=== PATIENT | female | born 1940 | race Caucasian/White ===

== ENCOUNTER 2016-02-10 21:19 | Inpatient (IN) | payer MEDICARE ==
[~2016-02-10] VITALS: Ht 160 cm; Wt 78.5 kg
[2016-02-10] MEDS ORDERED: ASPIRIN 81 MG CHEW TAB ONE (21:46)
[2016-02-10] MEDS ORDERED: NEB-ALBUTEROL 2.5 MG/3 ML INH ONE (22:54)
[2016-02-11] VITALS (7 sets, daily range): BP systolic 115–135; RESP 16–22; TEMP 97.6–98.9; Ht 160 cm; Wt 78.5 kg
[2016-02-11] MEDS ORDERED: GLUCAGON 1 MG VIAL IM PRN (01:30)
[2016-02-11] MEDS ORDERED: DEXTROSE 50% SYRINGE 50 ML IV PRN (01:30)
[2016-02-11] MEDS ORDERED: TRAMADOL 50 MG TAB PO PRN (02:30)
[2016-02-11] MEDS ORDERED: NITROGLYCERIN 50 MG/250 ML IV PRN (02:30)
[2016-02-11] MEDS ORDERED: SALINE FLUSH 10 ML FLUSH PRN (02:30)
[2016-02-11] MEDS ORDERED: DOCUSATE SOD 100 MG CAP PO PRN (02:30)
[2016-02-11] MEDS ORDERED: TEMAZEPAM 7.5 MG CAP PO PRN (02:30)
[2016-02-11] MEDS ORDERED: MORPHINE 2 MG/ML SYR IV PRN (02:30)
[2016-02-11] MEDS ORDERED: ONDANSETRON 4 MG VIAL IV PRN (02:30)
[2016-02-11] MEDS ORDERED: SODIUM CHLORIDE 0.9% FLUSH BAG 500 ML IV PRN (02:30)
[2016-02-11] MEDS ORDERED: NITROGLYCERIN SL 0.4 MG TAB SL PRN (02:30)
[2016-02-11] MEDS: DUONEB INH SCH ×8 (04:26→23:14)
[2016-02-11] MEDS ORDERED: ASPIRIN EC 81 MG TAB PO SCH (08:00)
[2016-02-11] MEDS ORDERED: NITROGLYCERIN SL 0.4 MG TAB SL SCH (09:20)
[2016-02-11] MEDS: ASPIRIN EC 81 MG TAB PO SCH (09:20)
[2016-02-11] MEDS: ACETAMINOPHEN 325 MG TAB PO PRN ×2 (09:23→20:45)
[2016-02-11] MEDS: LORAZEPAM 0.5 MG TAB PO PRN ×2 (09:23→20:44)
[2016-02-11] MEDS: SALINE FLUSH 10 ML FLUSH SCH ×2 (09:24→20:43)
[2016-02-11] MEDS: SERTRALINE 25 MG TAB PO SCH (11:22)
[2016-02-11] MEDS: MONTELUKAST 10 MG TAB PO SCH (11:22)
[2016-02-11] MEDS: Furosemide 20 MG TAB PO SCH (11:23)
[2016-02-11] MEDS: ROFLUMILAST 500 MCG TAB PO SCH (11:23)
[2016-02-11] MEDS: RALOXIFENE HCL 60 MG TAB PO SCH (11:23)
[2016-02-11] MEDS: GABAPENTIN 600 MG TAB PO SCH ×3 (11:23→20:44)
[2016-02-11] MEDS: LEVOTHYROXINE 0.125 MG TAB PO SCH (11:23)
[2016-02-11] MEDS: PANTOPRAZOLE 40 MG TAB PO SCH (11:23)
[2016-02-11] MEDS: LOPERAMIDE 2 MG CAPSULE PO SCH ×2 (11:24→20:46)
[2016-02-11] MEDS: FERROUS SULF 325 MG TAB PO SCH ×2 (11:24→20:46)
[2016-02-11] MEDS: METOPROLOL XL 50 MG TAB PO SCH ×2 (11:25→20:44)
[2016-02-11] MEDS: humuLIN N INSULIN SUBQ SCH ×2 (11:26→20:46)
[2016-02-11] MEDS ORDERED: MISSING DOSE XX ONE (12:25)
[2016-02-11] MEDS: NEB-ALBUTEROL 2.5 MG/3 ML INH SCH ×2 (12:29→17:22)
[2016-02-11] MEDS: CHOLECALCIFEROL 1,000 UNITS TAB PO SCH (15:56)
[2016-02-11] MEDS ORDERED: Furosemide 40 MG/4 ML VIAL IV ONE (19:45)
[2016-02-11] MEDS: LEVOFLOXACIN 750 MG/150 ML 150 ML IV SCH (20:43)
[2016-02-11] MEDS: METHYLPRED SOD SUCC 40 MG VIAL IV SCH (20:43)
[2016-02-11] MEDS: Atorvastatin 20 MG TAB PO SCH (20:44)
[2016-02-12] VITALS (7 sets, daily range): BP systolic 120–152; RESP 18–22; TEMP 97.8–98.5
[2016-02-12] MEDS: NEB-ALBUTEROL 2.5 MG/3 ML INH SCH ×4 (00:30→18:30)
[2016-02-12] MEDS: DUONEB INH SCH ×7 (01:01→22:32)
[2016-02-12] MEDS: PANTOPRAZOLE 40 MG TAB PO SCH (06:38)
[2016-02-12] MEDS: LEVOTHYROXINE 0.125 MG TAB PO SCH (06:38)
[2016-02-12] MEDS: SALINE FLUSH 10 ML FLUSH SCH ×2 (08:38→23:31)
[2016-02-12] MEDS: METHYLPRED SOD SUCC 40 MG VIAL IV SCH ×3 (08:38→17:09)
[2016-02-12] MEDS: humuLIN N INSULIN SUBQ SCH ×2 (08:39→20:57)
[2016-02-12] MEDS: Furosemide 20 MG TAB PO SCH (08:42)
[2016-02-12] MEDS: MONTELUKAST 10 MG TAB PO SCH (08:42)
[2016-02-12] MEDS: CHOLECALCIFEROL 1,000 UNITS TAB PO SCH (08:42)
[2016-02-12] MEDS: LEVOFLOXACIN 750 MG/150 ML 150 ML IV SCH (08:42)
[2016-02-12] MEDS: SERTRALINE 25 MG TAB PO SCH (08:42)
[2016-02-12] MEDS: LOPERAMIDE 2 MG CAPSULE PO SCH ×2 (08:42→20:56)
[2016-02-12] MEDS: ROFLUMILAST 500 MCG TAB PO SCH (08:43)
[2016-02-12] MEDS: METOPROLOL XL 50 MG TAB PO SCH ×2 (08:43→20:56)
[2016-02-12] MEDS: ASPIRIN EC 81 MG TAB PO SCH (08:43)
[2016-02-12] MEDS: FERROUS SULF 325 MG TAB PO SCH ×2 (08:43→20:56)
[2016-02-12] MEDS: GABAPENTIN 600 MG TAB PO SCH ×3 (08:43→20:56)
[2016-02-12] MEDS: RALOXIFENE HCL 60 MG TAB PO SCH (08:43)
[2016-02-12] MEDS: NEB-BROVANA 15 MCG/2 ML INH SCH ×2 (13:54→19:24)
[2016-02-12] MEDS: ACETAMINOPHEN 325 MG TAB PO PRN (20:55)
[2016-02-12] MEDS: LORAZEPAM 0.5 MG TAB PO PRN (20:55)
[2016-02-12] MEDS: Atorvastatin 20 MG TAB PO SCH (20:56)
[2016-02-13] MEDS: METHYLPRED SOD SUCC 40 MG VIAL IV SCH ×3 (00:21→16:34)
[2016-02-13] MEDS: NEB-ALBUTEROL 2.5 MG/3 ML INH SCH ×3 (00:30→12:30)
[2016-02-13] MEDS: DUONEB INH SCH ×6 (02:10→23:00)
[2016-02-13] MEDS: ACETAMINOPHEN 325 MG TAB PO PRN ×2 (02:55→21:39)
[2016-02-13 03:00] VITALS: BP_SYST 150; RESP 18; TEMP 98.4
[2016-02-13] MEDS: LEVOTHYROXINE 0.125 MG TAB PO SCH (06:19)
[2016-02-13] MEDS: PANTOPRAZOLE 40 MG TAB PO SCH (06:20)
[2016-02-13] MEDS: NEB-BROVANA 15 MCG/2 ML INH SCH ×2 (06:42→18:51)
[2016-02-13] MEDS: SALINE FLUSH 10 ML FLUSH SCH ×2 (08:06→20:00)
[2016-02-13] MEDS: LEVOFLOXACIN 750 MG/150 ML 150 ML IV SCH (08:06)
[2016-02-13] MEDS: ROFLUMILAST 500 MCG TAB PO SCH (08:07)
[2016-02-13] MEDS: METOPROLOL XL 50 MG TAB PO SCH ×2 (08:07→21:38)
[2016-02-13] MEDS: SERTRALINE 25 MG TAB PO SCH (08:07)
[2016-02-13] MEDS: CHOLECALCIFEROL 1,000 UNITS TAB PO SCH (08:07)
[2016-02-13] MEDS: RALOXIFENE HCL 60 MG TAB PO SCH (08:08)
[2016-02-13] MEDS: FERROUS SULF 325 MG TAB PO SCH ×2 (08:08→21:38)
[2016-02-13] MEDS: Furosemide 20 MG TAB PO SCH (08:08)
[2016-02-13] MEDS: GABAPENTIN 600 MG TAB PO SCH ×3 (08:08→21:37)
[2016-02-13] MEDS: MONTELUKAST 10 MG TAB PO SCH (08:08)
[2016-02-13] MEDS: ASPIRIN EC 81 MG TAB PO SCH (08:08)
[2016-02-13] MEDS: LOPERAMIDE 2 MG CAPSULE PO SCH ×2 (08:08→21:38)
[2016-02-13 08:16] VITALS: BP_SYST 143; RESP 20; TEMP 97.4
[2016-02-13] MEDS: humuLIN N INSULIN SUBQ SCH ×2 (08:30→21:00)
[2016-02-13 12:02] VITALS: BP_SYST 118; RESP 20; TEMP 98.2
[2016-02-13] MEDS ORDERED: Furosemide 40 MG/4 ML VIAL IV ONE (15:45)
[2016-02-13] MEDS: ISOSORBIDE MONO 30 MG TAB PO SCH (16:34)
[2016-02-13 16:36] VITALS: BP_SYST 149; RESP 20; TEMP 98.6
[2016-02-13] MEDS: ENOXAPARIN 30 MG/0.3 ML SYR SUBQ SCH (16:36)
[2016-02-13 19:00] VITALS: BP_SYST 132; RESP 20; TEMP 97.6
[2016-02-13] MEDS: Atorvastatin 20 MG TAB PO SCH (21:37)
[2016-02-13 23:14] VITALS: BP_SYST 125; RESP 20; TEMP 98.1
[2016-02-14] MEDS: METHYLPRED SOD SUCC 40 MG VIAL IV SCH ×4 (00:09→23:09)
[2016-02-14] MEDS: DUONEB INH SCH ×6 (02:04→23:19)
[2016-02-14 03:49] VITALS: BP_SYST 113; RESP 20; TEMP 98
[2016-02-14] MEDS: NEB-BROVANA 15 MCG/2 ML INH SCH ×2 (06:20→19:20)
[2016-02-14] MEDS: PANTOPRAZOLE 40 MG TAB PO SCH (06:28)
[2016-02-14] MEDS: LEVOTHYROXINE 0.125 MG TAB PO SCH (06:28)
[2016-02-14 08:02] VITALS: BP_SYST 131; RESP 18; TEMP 97.6
[2016-02-14] MEDS: SALINE FLUSH 10 ML FLUSH SCH ×2 (08:51→19:59)
[2016-02-14] MEDS: Furosemide 20 MG TAB PO SCH (08:53)
[2016-02-14] MEDS: MONTELUKAST 10 MG TAB PO SCH (08:53)
[2016-02-14] MEDS: ENOXAPARIN 30 MG/0.3 ML SYR SUBQ SCH (08:53)
[2016-02-14] MEDS: SERTRALINE 25 MG TAB PO SCH (08:53)
[2016-02-14] MEDS: LEVOFLOXACIN 750 MG TAB PO SCH (08:53)
[2016-02-14] MEDS: ROFLUMILAST 500 MCG TAB PO SCH (08:54)
[2016-02-14] MEDS: GABAPENTIN 600 MG TAB PO SCH ×3 (08:54→20:00)
[2016-02-14] MEDS: ISOSORBIDE MONO 30 MG TAB PO SCH (08:54)
[2016-02-14] MEDS: LOPERAMIDE 2 MG CAPSULE PO SCH ×2 (08:55→20:00)
[2016-02-14] MEDS: FERROUS SULF 325 MG TAB PO SCH ×2 (08:55→19:59)
[2016-02-14] MEDS: ASPIRIN EC 81 MG TAB PO SCH (08:55)
[2016-02-14] MEDS: RALOXIFENE HCL 60 MG TAB PO SCH (08:55)
[2016-02-14] MEDS: CHOLECALCIFEROL 1,000 UNITS TAB PO SCH (08:55)
[2016-02-14] MEDS: METOPROLOL XL 50 MG TAB PO SCH ×2 (10:18→20:00)
[2016-02-14] MEDS: humuLIN N INSULIN SUBQ SCH ×2 (10:19→20:11)
[2016-02-14] MEDS: ACETAMINOPHEN 325 MG TAB PO PRN ×2 (11:02→20:22)
[2016-02-14 12:06] VITALS: BP_SYST 128; RESP 20; TEMP 98
[2016-02-14 15:53] VITALS: BP_SYST 102; RESP 20; TEMP 98.4
[2016-02-14] MEDS ORDERED: MISSING DOSE XX ONE (16:25)
[2016-02-14 19:15] VITALS: BP_SYST 103; RESP 20; TEMP 98.5
[2016-02-14] MEDS: Atorvastatin 20 MG TAB PO SCH (20:00)
[2016-02-14 23:18] VITALS: BP_SYST 124; RESP 20; TEMP 98.1
[2016-02-15] MEDS ORDERED: MISSING DOSE XX ONE (03:05)
[2016-02-15] MEDS: DUONEB INH SCH ×6 (03:07→22:36)
[2016-02-15 03:40] VITALS: BP_SYST 149; RESP 20; TEMP 97.8
[2016-02-15] MEDS: PANTOPRAZOLE 40 MG TAB PO SCH (06:03)
[2016-02-15] MEDS: LEVOTHYROXINE 0.125 MG TAB PO SCH (06:03)
[2016-02-15] MEDS: NEB-BROVANA 15 MCG/2 ML INH SCH ×2 (06:04→18:53)
[2016-02-15 07:18] VITALS: BP_SYST 139; RESP 20; TEMP 97.9
[2016-02-15] MEDS: SALINE FLUSH 10 ML FLUSH SCH ×2 (07:49→20:50)
[2016-02-15] MEDS: METHYLPRED SOD SUCC 40 MG VIAL IV SCH ×4 (07:49→23:59)
[2016-02-15] MEDS: humuLIN N INSULIN SUBQ SCH ×2 (08:59→20:42)
[2016-02-15] MEDS: ENOXAPARIN 30 MG/0.3 ML SYR SUBQ SCH (10:23)
[2016-02-15] MEDS: ASPIRIN EC 81 MG TAB PO SCH (10:23)
[2016-02-15] MEDS: ROFLUMILAST 500 MCG TAB PO SCH (10:23)
[2016-02-15] MEDS: FERROUS SULF 325 MG TAB PO SCH ×2 (10:24→20:41)
[2016-02-15] MEDS: LOPERAMIDE 2 MG CAPSULE PO SCH ×2 (10:24→20:41)
[2016-02-15] MEDS: ISOSORBIDE MONO 30 MG TAB PO SCH (10:24)
[2016-02-15] MEDS: RALOXIFENE HCL 60 MG TAB PO SCH (10:24)
[2016-02-15] MEDS: LEVOFLOXACIN 750 MG TAB PO SCH (10:25)
[2016-02-15] MEDS: GABAPENTIN 600 MG TAB PO SCH ×3 (10:25→20:41)
[2016-02-15] MEDS: Furosemide 20 MG TAB PO SCH (10:25)
[2016-02-15] MEDS: MONTELUKAST 10 MG TAB PO SCH (10:25)
[2016-02-15] MEDS: CHOLECALCIFEROL 1,000 UNITS TAB PO SCH (10:26)
[2016-02-15] MEDS: METOPROLOL XL 50 MG TAB PO SCH ×2 (10:26→20:41)
[2016-02-15] MEDS: SERTRALINE 25 MG TAB PO SCH (10:27)
[2016-02-15 11:29] VITALS: BP_SYST 124; RESP 20; TEMP 98.1
[2016-02-15] MEDS: ACETAMINOPHEN 325 MG TAB PO PRN (14:43)
[2016-02-15 15:15] VITALS: BP_SYST 108; RESP 20; TEMP 98.3
[2016-02-15] MEDS: NEB-BUDESONIDE 0.5 MG INH SCH (18:55)
[2016-02-15 19:29] VITALS: BP_SYST 130; RESP 20; TEMP 98.1
[2016-02-15] MEDS: Atorvastatin 20 MG TAB PO SCH (20:41)
[2016-02-15 23:36] VITALS: BP_SYST 139; RESP 20; TEMP 98
[2016-02-16] MEDS: DUONEB INH SCH ×6 (02:31→23:08)
[2016-02-16 02:46] VITALS: BP_SYST 128; RESP 20; TEMP 98.2
[2016-02-16] MEDS: LEVOTHYROXINE 0.125 MG TAB PO SCH (05:52)
[2016-02-16] MEDS: PANTOPRAZOLE 40 MG TAB PO SCH (05:53)
[2016-02-16] MEDS: METHYLPRED SOD SUCC 40 MG VIAL IV SCH ×4 (05:53→23:49)
[2016-02-16] MEDS: NEB-BUDESONIDE 0.5 MG INH SCH ×2 (06:57→19:04)
[2016-02-16] MEDS: NEB-BROVANA 15 MCG/2 ML INH SCH ×2 (06:57→19:04)
[2016-02-16 07:37] VITALS: BP_SYST 189; RESP 18; TEMP 97.9
[2016-02-16] MEDS: ASPIRIN EC 81 MG TAB PO SCH (08:02)
[2016-02-16] MEDS: SALINE FLUSH 10 ML FLUSH SCH ×2 (08:02→19:22)
[2016-02-16] MEDS: LOPERAMIDE 2 MG CAPSULE PO SCH ×2 (08:03→20:54)
[2016-02-16] MEDS: ISOSORBIDE MONO 30 MG TAB PO SCH (08:03)
[2016-02-16] MEDS: MONTELUKAST 10 MG TAB PO SCH (08:03)
[2016-02-16] MEDS: SERTRALINE 25 MG TAB PO SCH (08:03)
[2016-02-16] MEDS: RALOXIFENE HCL 60 MG TAB PO SCH (08:03)
[2016-02-16] MEDS: GABAPENTIN 600 MG TAB PO SCH ×3 (08:03→20:54)
[2016-02-16] MEDS: Furosemide 20 MG TAB PO SCH (08:04)
[2016-02-16] MEDS: ENOXAPARIN 30 MG/0.3 ML SYR SUBQ SCH (08:04)
[2016-02-16] MEDS: METOPROLOL XL 50 MG TAB PO SCH ×2 (08:04→20:54)
[2016-02-16] MEDS: FERROUS SULF 325 MG TAB PO SCH ×2 (08:05→20:54)
[2016-02-16] MEDS: CHOLECALCIFEROL 1,000 UNITS TAB PO SCH (08:05)
[2016-02-16] MEDS: LEVOFLOXACIN 750 MG TAB PO SCH (08:05)
[2016-02-16] MEDS: ROFLUMILAST 500 MCG TAB PO SCH (08:06)
[2016-02-16] MEDS: humuLIN N INSULIN SUBQ SCH ×2 (09:09→21:08)
[2016-02-16 11:02] VITALS: BP_SYST 119; RESP 16; TEMP 98
[2016-02-16] MEDS ORDERED: PHARMACY TO DOSE IV SCH (14:35)
[2016-02-16 15:06] VITALS: BP_SYST 164; RESP 18; TEMP 98.2
[2016-02-16] MEDS: VANCOMYCIN 1,500 MG in SODIUM CHLORIDE 0.9% 250 ML IV SCH (17:26)
[2016-02-16 19:29] VITALS: BP_SYST 142; RESP 18; TEMP 96.6
[2016-02-16] MEDS: Atorvastatin 20 MG TAB PO SCH (20:54)
[2016-02-16 23:16] VITALS: BP_SYST 138; RESP 18; TEMP 96.8
[2016-02-17] MEDS: DUONEB INH SCH ×6 (02:37→23:07)
[2016-02-17 05:05] VITALS: BP_SYST 156; RESP 18; TEMP 97.4
[2016-02-17] MEDS: METHYLPRED SOD SUCC 40 MG VIAL IV SCH ×2 (05:30→11:24)
[2016-02-17] MEDS: PANTOPRAZOLE 40 MG TAB PO SCH (05:31)
[2016-02-17] MEDS: LEVOTHYROXINE 0.125 MG TAB PO SCH (05:31)
[2016-02-17] MEDS ORDERED: SALINE FLUSH 10 ML FLUSH PRN (05:35)
[2016-02-17] MEDS ORDERED: SODIUM CHLORIDE 0.9% FLUSH BAG 500 ML IV SCH (06:00)
[2016-02-17] MEDS: NEB-BUDESONIDE 0.5 MG INH SCH ×2 (06:31→17:08)
[2016-02-17] MEDS: NEB-BROVANA 15 MCG/2 ML INH SCH ×2 (06:31→17:08)
[2016-02-17 07:57] VITALS: BP_SYST 162; RESP 16; TEMP 97.1
[2016-02-17] MEDS: SALINE FLUSH 10 ML FLUSH SCH ×2 (08:00→20:00)
[2016-02-17] MEDS ORDERED: SALINE FLUSH 10 ML FLUSH SCH (08:00)
[2016-02-17] MEDS: ENOXAPARIN 30 MG/0.3 ML SYR SUBQ SCH (09:12)
[2016-02-17] MEDS: humuLIN N INSULIN SUBQ SCH ×2 (09:12→21:30)
[2016-02-17] MEDS: SERTRALINE 25 MG TAB PO SCH (09:13)
[2016-02-17] MEDS: MONTELUKAST 10 MG TAB PO SCH (09:13)
[2016-02-17] MEDS: GABAPENTIN 600 MG TAB PO SCH ×3 (09:13→21:13)
[2016-02-17] MEDS: FERROUS SULF 325 MG TAB PO SCH ×2 (09:13→21:13)
[2016-02-17] MEDS: ISOSORBIDE MONO 30 MG TAB PO SCH (09:13)
[2016-02-17] MEDS: RALOXIFENE HCL 60 MG TAB PO SCH (09:13)
[2016-02-17] MEDS: CHOLECALCIFEROL 1,000 UNITS TAB PO SCH (09:14)
[2016-02-17] MEDS: ASPIRIN EC 81 MG TAB PO SCH (09:14)
[2016-02-17] MEDS: LOPERAMIDE 2 MG CAPSULE PO SCH ×2 (09:14→21:13)
[2016-02-17] MEDS: METOPROLOL XL 50 MG TAB PO SCH ×2 (09:14→21:13)
[2016-02-17] MEDS: Furosemide 20 MG TAB PO SCH (09:15)
[2016-02-17] MEDS: ROFLUMILAST 500 MCG TAB PO SCH (09:16)
[2016-02-17 10:27] VITALS: BP_SYST 142; RESP 18; TEMP 97.1
[2016-02-17 15:16] VITALS: BP_SYST 132; RESP 16; TEMP 97.5
[2016-02-17] MEDS: VANCOMYCIN 1,500 MG in SODIUM CHLORIDE 0.9% 250 ML IV SCH (16:27)
[2016-02-17 19:22] VITALS: BP_SYST 142; RESP 18; TEMP 97.5
[2016-02-17] MEDS: Atorvastatin 20 MG TAB PO SCH (21:13)
[2016-02-17 23:25] VITALS: BP_SYST 98; RESP 18; TEMP 96.6
[2016-02-18 02:41] VITALS: BP_SYST 122; RESP 18; TEMP 96.1
[2016-02-18] MEDS: DUONEB INH SCH ×5 (03:05→18:42)
[2016-02-18] MEDS: PANTOPRAZOLE 40 MG TAB PO SCH (06:02)
[2016-02-18] MEDS: LEVOTHYROXINE 0.125 MG TAB PO SCH (06:02)
[2016-02-18 07:47] VITALS: BP_SYST 150; RESP 20; TEMP 95.6
[2016-02-18] MEDS: NEB-BROVANA 15 MCG/2 ML INH SCH ×2 (08:26→18:42)
[2016-02-18] MEDS: NEB-BUDESONIDE 0.5 MG INH SCH ×2 (08:27→18:42)
[2016-02-18] MEDS: humuLIN N INSULIN SUBQ SCH (09:00)
[2016-02-18] MEDS ORDERED: PREDNISONE 20 MG TAB PO SCH (09:00)
[2016-02-18] MEDS: ROFLUMILAST 500 MCG TAB PO SCH (11:03)
[2016-02-18] MEDS: METOPROLOL XL 50 MG TAB PO SCH (11:03)
[2016-02-18] MEDS: FERROUS SULF 325 MG TAB PO SCH (11:03)
[2016-02-18] MEDS: LOPERAMIDE 2 MG CAPSULE PO SCH (11:03)
[2016-02-18] MEDS: ASPIRIN EC 81 MG TAB PO SCH (11:04)
[2016-02-18] MEDS: CHOLECALCIFEROL 1,000 UNITS TAB PO SCH (11:04)
[2016-02-18] MEDS: Furosemide 20 MG TAB PO SCH (11:04)
[2016-02-18] MEDS: GABAPENTIN 600 MG TAB PO SCH ×2 (11:04→17:46)
[2016-02-18] MEDS: MONTELUKAST 10 MG TAB PO SCH (11:04)
[2016-02-18] MEDS: RALOXIFENE HCL 60 MG TAB PO SCH (11:04)
[2016-02-18] MEDS: ISOSORBIDE MONO 30 MG TAB PO SCH (11:05)
[2016-02-18] MEDS: ENOXAPARIN 30 MG/0.3 ML SYR SUBQ SCH (11:06)
[2016-02-18 11:44] VITALS: BP_SYST 124; RESP 20; TEMP 93.1
[2016-02-18] MEDS: SALINE FLUSH 10 ML FLUSH SCH (12:57)
[2016-02-18 15:44] VITALS: BP_SYST 120; RESP 18; TEMP 98.1
[2016-02-18] MEDS: VANCOMYCIN 1,500 MG in SODIUM CHLORIDE 0.9% 250 ML IV SCH (17:46)
[2016-02-18 18:00] VITALS: BP_SYST 120; RESP 18; TEMP 98.1
== END 2016-02-18 19:34 | DRG 190 ==
LOC: ENRESERVDT → ENRESERVTM → ER 21:19 → EMR 22:53 → PCU 02-11 00:23 → OBSVTOIN 02-11 12:07 → ENPENDDIS 02-11 12:07 → 4NT 02-14 12:03
PROVIDERS: ADMIT Internal Medicine Cardiovascular Disease; ATTEND Internal Medicine Cardiovascular Disease
CPT/HCPCS: 36415; 36600; 71010; 80048; 80053; 80061; 82550; 82553; 82565; 82947; 83735; 83880; 84484; 84520; 85025; 85610; 85730; 87071; 87077; 87186; 87804; 93005; 94640; 94799; 99223; 99232; 99233

== ENCOUNTER 2016-02-18 16:11 | Inpatient (IN) | payer MEDICARE ==
[~2016-02-18] VITALS: Ht 160 cm; Wt 80.5 kg
[2016-02-18] MEDS ORDERED: NITROGLYCERIN SL 0.4 MG TAB SL SCH (16:30)
[2016-02-18] MEDS ORDERED: TRAMADOL 50 MG TAB PO PRN (16:30)
[2016-02-18] MEDS ORDERED: LORAZEPAM 0.5 MG TAB PO PRN (16:30)
[2016-02-18] MEDS: ASPIRIN EC 81 MG TAB PO SCH (16:30)
[2016-02-18] MEDS: DUONEB INH SCH ×2 (16:30→19:00)
[2016-02-18] MEDS ORDERED: PNEUMO VAC 25 MCG/0.5 ML VL IM.VACC ONE (16:35)
[2016-02-18] MEDS ORDERED: PHARMACY TO DOSE XX SCH (16:40)
[2016-02-18] MEDS ORDERED: NEB-ALBUTEROL 2.5 MG/3 ML INH SCH (19:00)
[2016-02-18] MEDS ORDERED: **NOTE TO NURSE**PLEASE ENTER HT AND WT FOR VANCOMYCIN DOSING XX SCH (20:18)
[2016-02-18 20:50] VITALS: BP_SYST 100; RESP 18; TEMP 97.6
[2016-02-18 20:55] VITALS: BMI 31.4
[2016-02-18] MEDS ORDERED: TUBERCULIN PPD 5 UNIT SYR ID.VACC ONE (21:00)
[2016-02-18] MEDS ORDERED: MISSING DOSE XX ONE (21:15)
[2016-02-18] MEDS: humuLIN N INSULIN SUBQ SCH (22:09)
[2016-02-18] MEDS: FERROUS SULF 325 MG TAB PO SCH (22:10)
[2016-02-18] MEDS: Atorvastatin 20 MG TAB PO SCH (22:10)
[2016-02-18] MEDS: LOPERAMIDE 2 MG CAPSULE PO SCH (22:11)
[2016-02-18] MEDS: PANTOPRAZOLE 40 MG TAB PO SCH (22:11)
[2016-02-18] MEDS: METOPROLOL XL 50 MG TAB PO SCH (22:11)
[2016-02-18] MEDS ORDERED: DUONEB INH ONE (22:15)
[2016-02-18 22:50] VITALS: RESP 18
[2016-02-18] MEDS: ACETAMINOPHEN 325 MG TAB PO PRN (23:08)
[2016-02-18] MEDS: GABAPENTIN 600 MG TAB PO SCH (23:09)
[2016-02-19 04:12] VITALS: BP_SYST 130; RESP 18; TEMP 97.1
[2016-02-19] MEDS: NEB-BROVANA 15 MCG/2 ML INH SCH ×2 (06:39→19:47)
[2016-02-19] MEDS: DUONEB INH SCH ×5 (06:39→23:17)
[2016-02-19] MEDS: NEB-BUDESONIDE 0.5 MG INH SCH ×2 (06:39→19:46)
[2016-02-19] MEDS: LEVOTHYROXINE 0.125 MG TAB PO SCH (07:13)
[2016-02-19] MEDS: humuLIN N INSULIN SUBQ SCH ×2 (07:57→20:31)
[2016-02-19] MEDS: METOPROLOL XL 50 MG TAB PO SCH ×2 (08:47→20:29)
[2016-02-19] MEDS: SERTRALINE 25 MG TAB PO SCH (08:47)
[2016-02-19] MEDS: CHOLECALCIFEROL 1,000 UNITS TAB PO SCH (08:47)
[2016-02-19] MEDS: RALOXIFENE HCL 60 MG TAB PO SCH (08:47)
[2016-02-19] MEDS: ISOSORBIDE MONO 30 MG TAB PO SCH (08:48)
[2016-02-19] MEDS: ROFLUMILAST 500 MCG TAB PO SCH (08:49)
[2016-02-19] MEDS: FERROUS SULF 325 MG TAB PO SCH ×2 (08:49→20:30)
[2016-02-19] MEDS: MONTELUKAST 10 MG TAB PO SCH (08:49)
[2016-02-19] MEDS: Furosemide 20 MG TAB PO SCH (08:49)
[2016-02-19] MEDS: LOPERAMIDE 2 MG CAPSULE PO SCH ×2 (08:49→20:30)
[2016-02-19] MEDS: ASPIRIN EC 81 MG TAB PO SCH (08:49)
[2016-02-19] MEDS: GABAPENTIN 600 MG TAB PO SCH ×3 (08:49→20:29)
[2016-02-19 13:30] VITALS: BP_SYST 100; RESP 18; TEMP 97.6
[2016-02-19 15:43] VITALS: Ht 160 cm; Wt 80.5 kg
[2016-02-19 15:44] VITALS: BP_SYST 100; RESP 18; TEMP 96.9
[2016-02-19] MEDS: Atorvastatin 20 MG TAB PO SCH (20:29)
[2016-02-19] MEDS: PANTOPRAZOLE 40 MG TAB PO SCH (20:30)
[2016-02-19] MEDS: VANCOMYCIN 1,500 MG in SODIUM CHLORIDE 0.9% 250 ML IV SCH (21:35)
[2016-02-19] MEDS: ACETAMINOPHEN 325 MG TAB PO PRN (22:43)
[2016-02-20 02:05] VITALS: BP_SYST 108; RESP 20; TEMP 97.5
[2016-02-20] MEDS: DUONEB INH SCH ×5 (05:18→22:56)
[2016-02-20] MEDS: NEB-BUDESONIDE 0.5 MG INH SCH ×2 (05:18→16:58)
[2016-02-20] MEDS: NEB-BROVANA 15 MCG/2 ML INH SCH ×2 (05:18→16:58)
[2016-02-20] MEDS ORDERED: SODIUM CHLORIDE 0.9% FLUSH BAG 500 ML IV PRN (05:50)
[2016-02-20] MEDS: LEVOTHYROXINE 0.125 MG TAB PO SCH (06:38)
[2016-02-20 08:46] VITALS: BP_SYST 138
[2016-02-20] MEDS: ISOSORBIDE MONO 30 MG TAB PO SCH (08:50)
[2016-02-20] MEDS: Furosemide 20 MG TAB PO SCH (08:50)
[2016-02-20] MEDS: ASPIRIN EC 81 MG TAB PO SCH (08:51)
[2016-02-20] MEDS: MONTELUKAST 10 MG TAB PO SCH (08:51)
[2016-02-20] MEDS: LOPERAMIDE 2 MG CAPSULE PO SCH ×2 (08:51→21:25)
[2016-02-20] MEDS: METOPROLOL XL 50 MG TAB PO SCH ×2 (08:51→21:26)
[2016-02-20] MEDS: FERROUS SULF 325 MG TAB PO SCH ×2 (08:51→21:25)
[2016-02-20] MEDS: SERTRALINE 25 MG TAB PO SCH (08:51)
[2016-02-20] MEDS: RALOXIFENE HCL 60 MG TAB PO SCH (08:51)
[2016-02-20] MEDS: GABAPENTIN 600 MG TAB PO SCH ×3 (08:51→21:25)
[2016-02-20] MEDS: ROFLUMILAST 500 MCG TAB PO SCH (08:52)
[2016-02-20] MEDS: CHOLECALCIFEROL 1,000 UNITS TAB PO SCH (08:52)
[2016-02-20] MEDS: humuLIN N INSULIN SUBQ SCH ×2 (09:18→21:29)
[2016-02-20 11:52] VITALS: BP_SYST 126; RESP 20; TEMP 97.3
[2016-02-20] MEDS: VANCOMYCIN 1,500 MG in SODIUM CHLORIDE 0.9% 250 ML IV SCH (17:52)
[2016-02-20] MEDS: NEB-ALBUTEROL 2.5 MG/3 ML INH PRN (19:40)
[2016-02-20] MEDS ORDERED: SKIN TEST: READ AND RECORD XX SCH (21:00)
[2016-02-20] MEDS: PANTOPRAZOLE 40 MG TAB PO SCH (21:25)
[2016-02-20] MEDS: Atorvastatin 20 MG TAB PO SCH (21:25)
[2016-02-20] MEDS: ACETAMINOPHEN 325 MG TAB PO PRN (21:27)
[2016-02-20 21:33] VITALS: BP_SYST 108; RESP 20; TEMP 98.7
[2016-02-21] MEDS: NEB-ALBUTEROL 2.5 MG/3 ML INH PRN ×2 (00:11→21:34)
[2016-02-21 01:21] VITALS: BP_SYST 150; RESP 20; TEMP 98
[2016-02-21] MEDS: DUONEB INH SCH ×6 (02:41→23:08)
[2016-02-21] MEDS: LEVOTHYROXINE 0.125 MG TAB PO SCH (06:34)
[2016-02-21] MEDS: NEB-BUDESONIDE 0.5 MG INH SCH ×2 (07:13→18:25)
[2016-02-21] MEDS: NEB-BROVANA 15 MCG/2 ML INH SCH ×2 (07:13→18:25)
[2016-02-21 07:42] VITALS: BP_SYST 140; RESP 22; TEMP 97
[2016-02-21] MEDS: CHOLECALCIFEROL 1,000 UNITS TAB PO SCH (08:04)
[2016-02-21] MEDS: LOPERAMIDE 2 MG CAPSULE PO SCH ×2 (08:04→21:07)
[2016-02-21] MEDS: humuLIN N INSULIN SUBQ SCH ×2 (08:04→21:00)
[2016-02-21] MEDS: FERROUS SULF 325 MG TAB PO SCH ×2 (08:05→21:06)
[2016-02-21] MEDS: SERTRALINE 25 MG TAB PO SCH (08:05)
[2016-02-21] MEDS: ASPIRIN EC 81 MG TAB PO SCH (08:05)
[2016-02-21] MEDS: RALOXIFENE HCL 60 MG TAB PO SCH (08:05)
[2016-02-21] MEDS: Furosemide 20 MG TAB PO SCH (08:05)
[2016-02-21] MEDS: ROFLUMILAST 500 MCG TAB PO SCH (08:05)
[2016-02-21] MEDS: GABAPENTIN 600 MG TAB PO SCH ×3 (08:05→21:06)
[2016-02-21] MEDS: ISOSORBIDE MONO 30 MG TAB PO SCH (08:05)
[2016-02-21] MEDS: MONTELUKAST 10 MG TAB PO SCH (08:05)
[2016-02-21] MEDS: METOPROLOL XL 50 MG TAB PO SCH ×2 (08:06→21:07)
[2016-02-21] MEDS: ACETAMINOPHEN 325 MG TAB PO PRN ×2 (08:07→21:08)
[2016-02-21 16:12] VITALS: BP_SYST 128; RESP 22; TEMP 97.2
[2016-02-21] MEDS: VANCOMYCIN 1,500 MG in SODIUM CHLORIDE 0.9% 250 ML IV SCH (17:15)
[2016-02-21] MEDS: PANTOPRAZOLE 40 MG TAB PO SCH (21:06)
[2016-02-21] MEDS: Atorvastatin 20 MG TAB PO SCH (21:07)
[2016-02-22] MEDS: DUONEB INH SCH ×2 (02:10→07:00)
[2016-02-22 03:26] VITALS: BP_SYST 120; RESP 22; TEMP 98.6
[2016-02-22] MEDS: ACETAMINOPHEN 325 MG TAB PO PRN (03:47)
[2016-02-22] MEDS: NEB-ALBUTEROL 2.5 MG/3 ML INH PRN (03:53)
[2016-02-22] MEDS ORDERED: Furosemide 40 MG/4 ML VIAL ONE (05:59)
[2016-02-22 06:11] VITALS: RESP 26
[2016-02-22] MEDS ORDERED: Furosemide 40 MG/4 ML VIAL IV ONE (06:35)
[2016-02-22] MEDS: NEB-BUDESONIDE 0.5 MG INH SCH (07:00)
[2016-02-22] MEDS: NEB-BROVANA 15 MCG/2 ML INH SCH (07:00)
[2016-02-22] MEDS ORDERED: ONDANSETRON 4 MG VIAL IV PUSH PRN ×2 (07:15→08:25)
[2016-02-22] MEDS ORDERED: METHYLPRED SOD SUCC 125 MG/2 ML VIAL IV SCH (08:00)
[2016-02-25] MEDS ORDERED: TUBERCULIN PPD 5 UNIT SYR ID.VACC ONE (21:00)
== END 2016-02-22 09:04 | disposition short-term general hospital (02) | DRG 556 ==
LOC: ENPENDDIS 19:36 → OBSVTOIN 19:36 → NF 19:36
PROVIDERS: ADMIT Internal Medicine Cardiovascular Disease; ATTEND Internal Medicine Cardiovascular Disease
CPT/HCPCS: 36415; 36600; 71010; 71020; 80048; 80202; 82565; 82803; 82947; 84520; 86580; 94640; 94660; 94799; 99223

== ENCOUNTER 2016-02-22 06:42 | Inpatient (IN) | payer MEDICARE ==
[~2016-02-22] VITALS: Ht 160 cm; Wt 81.9 kg
[2016-02-22] MEDS ORDERED: DUONEB INH SCH (06:55)
[2016-02-22] MEDS ORDERED: DEXTROSE 50% SYRINGE 50 ML IV PRN (06:55)
[2016-02-22] MEDS ORDERED: GLUCAGON 1 MG VIAL IM PRN (06:55)
[2016-02-22] MEDS ORDERED: PHARMACY TO DOSE VANCOMYCIN IV SCH (06:55)
[2016-02-22] MEDS: NEB-BROVANA 15 MCG/2 ML INH SCH ×2 (07:00→18:55)
[2016-02-22] MEDS: NEB-BUDESONIDE 0.5 MG INH SCH ×2 (07:00→18:55)
[2016-02-22] MEDS ORDERED: ADD HEIGHT XX SCH (08:00)
[2016-02-22] MEDS ORDERED: [UNRECOGNIZED DRUG - OTHER] XX SCH (08:00)
[2016-02-22 08:52] VITALS: BP_SYST 110; RESP 24; TEMP 99.7
[2016-02-22 08:53] VITALS: Ht 160 cm; Wt 81.9 kg
[2016-02-22] MEDS ORDERED: LINEZOLID 600 MG TAB PO SCH (09:00)
[2016-02-22] MEDS ORDERED: Furosemide 40 MG/4 ML VIAL IV ONE (09:10)
[2016-02-22] MEDS: DUONEB INH SCH ×4 (10:09→22:52)
[2016-02-22 10:15] VITALS: RESP 24
[2016-02-22] MEDS ORDERED: PHARMACY TO DOSE CEFEPIME IV SCH (10:40)
[2016-02-22] MEDS ORDERED: MISSING DOSE XX ONE ×2 (10:45→15:20)
[2016-02-22 11:13] VITALS: BP_SYST 120; RESP 24; TEMP 99.9
[2016-02-22] MEDS: PANTOPRAZOLE 40 MG TAB PO SCH (11:40)
[2016-02-22] MEDS: ROFLUMILAST 500 MCG TAB PO SCH (11:40)
[2016-02-22] MEDS: METHYLPRED SOD SUCC 125 MG/2 ML VIAL IV SCH ×2 (11:41→20:48)
[2016-02-22] MEDS: Furosemide 20 MG/2 ML VIAL IV SCH ×2 (11:41→17:34)
[2016-02-22] MEDS: ENOXAPARIN 30 MG/0.3 ML SYR SUBQ SCH (11:42)
[2016-02-22] MEDS: CEFEPIME 2000 MG/100 ML D5W 100 ML IV SCH ×2 (13:07→23:40)
[2016-02-22] MEDS ORDERED: DOCUSATE SOD 100 MG CAP PO PRN (14:30)
[2016-02-22 15:08] VITALS: BP_SYST 116; RESP 20; TEMP 98.4
[2016-02-22] MEDS: ACETAMINOPHEN 325 MG TAB PO PRN (15:42)
[2016-02-22] MEDS: GABAPENTIN 600 MG TAB PO SCH ×2 (15:42→20:48)
[2016-02-22] MEDS: VANCOMYCIN 1,500 MG in SODIUM CHLORIDE 0.9% 250 ML IV SCH (17:55)
[2016-02-22 19:29] VITALS: BP_SYST 130; RESP 19; TEMP 98.1
[2016-02-22 23:12] VITALS: BP_SYST 138; RESP 19; TEMP 98.4
[2016-02-23] MEDS: DUONEB INH SCH ×6 (02:08→23:14)
[2016-02-23 03:00] VITALS: BP_SYST 122; RESP 18; TEMP 97.8
[2016-02-23] MEDS: NEB-BUDESONIDE 0.5 MG INH SCH ×2 (06:04→17:00)
[2016-02-23] MEDS: NEB-BROVANA 15 MCG/2 ML INH SCH ×2 (06:04→17:00)
[2016-02-23] MEDS: PANTOPRAZOLE 40 MG TAB PO SCH (06:21)
[2016-02-23 07:01] VITALS: BP_SYST 134; RESP 18; TEMP 98.1
[2016-02-23] MEDS: ENOXAPARIN 30 MG/0.3 ML SYR SUBQ SCH (07:46)
[2016-02-23] MEDS: GABAPENTIN 600 MG TAB PO SCH ×3 (07:47→20:52)
[2016-02-23] MEDS: METHYLPRED SOD SUCC 125 MG/2 ML VIAL IV SCH (07:47)
[2016-02-23] MEDS: Furosemide 20 MG/2 ML VIAL IV SCH (07:47)
[2016-02-23] MEDS: ROFLUMILAST 500 MCG TAB PO SCH (07:47)
[2016-02-23] MEDS: PREDNISONE 20 MG TAB PO SCH (08:02)
[2016-02-23] MEDS: LORAZEPAM 0.5 MG TAB PO PRN ×2 (09:12→20:52)
[2016-02-23] MEDS ORDERED: ASPIRIN 81 MG CHEW TAB PO STA (09:27)
[2016-02-23] MEDS ORDERED: TEMAZEPAM 7.5 MG CAP PO PRN (09:30)
[2016-02-23] MEDS ORDERED: ONDANSETRON 4 MG VIAL IV PRN (09:30)
[2016-02-23] MEDS ORDERED: TRAMADOL 50 MG TAB PO PRN (09:30)
[2016-02-23] MEDS ORDERED: MORPHINE 2 MG/ML SYR IV PRN (09:30)
[2016-02-23] MEDS ORDERED: LORAZEPAM 0.5 MG TAB PO PRN (09:30)
[2016-02-23] MEDS ORDERED: DOCUSATE SOD 100 MG CAP PO PRN (09:30)
[2016-02-23] MEDS ORDERED: SALINE FLUSH 10 ML FLUSH PRN (09:30)
[2016-02-23] MEDS ORDERED: ALU/MAG/SIM 30 ML UDC PO PRN (09:30)
[2016-02-23] MEDS ORDERED: TEMAZEPAM 15 MG CAP PO PRN (09:30)
[2016-02-23] MEDS: NITROGLYCERIN SL 0.4 MG TAB SL PRN ×2 (09:38→11:59)
[2016-02-23 10:40] VITALS: BP_SYST 120; RESP 18; TEMP 98
[2016-02-23] MEDS: CEFEPIME 2000 MG/100 ML D5W 100 ML IV SCH ×2 (11:19→23:52)
[2016-02-23 15:10] VITALS: BP_SYST 124; RESP 20; TEMP 98.4
[2016-02-23] MEDS: Furosemide 20 MG TAB PO SCH (17:18)
[2016-02-23] MEDS: VANCOMYCIN 1,500 MG in SODIUM CHLORIDE 0.9% 250 ML IV SCH (17:19)
[2016-02-23 19:44] VITALS: BP_SYST 122; RESP 20; TEMP 97.8
[2016-02-23] MEDS: SALINE FLUSH 10 ML FLUSH SCH (20:52)
[2016-02-23] MEDS: ACETAMINOPHEN 325 MG TAB PO PRN (20:56)
[2016-02-24] VITALS (8 sets, daily range): BP systolic 120–174; RESP 18–22; TEMP 97.6–98.1
[2016-02-24] MEDS: DUONEB INH SCH ×6 (02:44→22:41)
[2016-02-24] MEDS: SODIUM CHLORIDE 0.9% FLUSH BAG 500 ML IV SCH (05:29)
[2016-02-24] MEDS: PANTOPRAZOLE 40 MG TAB PO SCH (06:08)
[2016-02-24] MEDS: NEB-BUDESONIDE 0.5 MG INH SCH ×2 (06:38→18:35)
[2016-02-24] MEDS: NEB-BROVANA 15 MCG/2 ML INH SCH ×2 (06:38→18:35)
[2016-02-24] MEDS: GABAPENTIN 600 MG TAB PO SCH ×3 (09:06→21:23)
[2016-02-24] MEDS: ROFLUMILAST 500 MCG TAB PO SCH (09:06)
[2016-02-24] MEDS: ASPIRIN 81 MG CHEW TAB PO SCH (09:06)
[2016-02-24] MEDS: PREDNISONE 20 MG TAB PO SCH (09:06)
[2016-02-24] MEDS: Furosemide 20 MG TAB PO SCH ×2 (09:06→16:01)
[2016-02-24] MEDS: ENOXAPARIN 30 MG/0.3 ML SYR SUBQ SCH (09:07)
[2016-02-24] MEDS: SALINE FLUSH 10 ML FLUSH SCH ×2 (09:07→20:00)
[2016-02-24] MEDS: LORAZEPAM 0.5 MG TAB PO PRN (10:45)
[2016-02-24] MEDS: CEFEPIME 2000 MG/100 ML D5W 100 ML IV SCH (13:27)
[2016-02-24] MEDS: VANCOMYCIN 1,500 MG in SODIUM CHLORIDE 0.9% 250 ML IV SCH (18:39)
[2016-02-24] MEDS ORDERED: VANCOMYCIN 500 MG in SODIUM CHLORIDE 0.9% 100 ML IV ONE (19:25)
[2016-02-24] MEDS: LINEZOLID 600 MG TAB PO SCH (21:35)
[2016-02-24] MEDS: ACETAMINOPHEN 325 MG TAB PO PRN (22:00)
[2016-02-25] MEDS: SODIUM CHLORIDE 0.9% FLUSH BAG 500 ML IV SCH (01:27)
[2016-02-25] MEDS: DUONEB INH SCH ×6 (02:20→23:04)
[2016-02-25 04:26] VITALS: BP_SYST 150; RESP 18; TEMP 97.8
[2016-02-25] MEDS: PANTOPRAZOLE 40 MG TAB PO SCH (06:14)
[2016-02-25] MEDS: NEB-BROVANA 15 MCG/2 ML INH SCH ×2 (06:39→18:52)
[2016-02-25] MEDS: NEB-BUDESONIDE 0.5 MG INH SCH ×2 (06:39→20:20)
[2016-02-25] MEDS: ASPIRIN 81 MG CHEW TAB PO SCH (07:42)
[2016-02-25] MEDS: ROFLUMILAST 500 MCG TAB PO SCH (07:42)
[2016-02-25] MEDS: Furosemide 20 MG TAB PO SCH ×2 (07:42→16:59)
[2016-02-25] MEDS: LINEZOLID 600 MG TAB PO SCH ×2 (07:42→21:28)
[2016-02-25] MEDS: GABAPENTIN 600 MG TAB PO SCH ×3 (07:42→21:28)
[2016-02-25] MEDS: SALINE FLUSH 10 ML FLUSH SCH ×2 (07:43→20:00)
[2016-02-25] MEDS: PREDNISONE 20 MG TAB PO SCH (07:43)
[2016-02-25] MEDS: ACETAMINOPHEN 325 MG TAB PO PRN ×2 (07:45→21:41)
[2016-02-25] MEDS: ENOXAPARIN 30 MG/0.3 ML SYR SUBQ SCH (07:46)
[2016-02-25 07:58] VITALS: BP_SYST 140; RESP 18; TEMP 97.6
[2016-02-25] MEDS: DUONEB INH PRN ×2 (09:03→17:50)
[2016-02-25] MEDS: LORAZEPAM 0.5 MG TAB PO PRN (09:25)
[2016-02-25] MEDS ORDERED: DUONEB INH SCH (11:00)
[2016-02-25] MEDS: ISOSORBIDE MONO 30 MG TAB PO SCH (11:54)
[2016-02-25] MEDS: LEVOTHYROXINE 0.125 MG TAB PO SCH (11:55)
[2016-02-25] MEDS: LOPERAMIDE 2 MG CAPSULE PO SCH ×2 (11:55→21:28)
[2016-02-25] MEDS: ASPIRIN EC 81 MG TAB PO SCH (11:55)
[2016-02-25] MEDS ORDERED: VANCOMYCIN 1,750 MG in SODIUM CHLORIDE 0.9% 500 ML IV SCH (12:00)
[2016-02-25 12:06] VITALS: BP_SYST 132; RESP 20; TEMP 97.6
[2016-02-25 15:43] VITALS: BP_SYST 132; RESP 18; TEMP 98
[2016-02-25 21:06] VITALS: BP_SYST 136; RESP 22; TEMP 97.8
[2016-02-25] MEDS: Atorvastatin 20 MG TAB PO SCH (21:28)
[2016-02-26 00:10] VITALS: BP_SYST 140; RESP 18; TEMP 98
[2016-02-26] MEDS: DUONEB INH SCH ×6 (03:03→23:50)
[2016-02-26 03:51] VITALS: BP_SYST 132; RESP 20; TEMP 97.6
[2016-02-26] MEDS: LEVOTHYROXINE 0.125 MG TAB PO SCH (06:35)
[2016-02-26] MEDS: PANTOPRAZOLE 40 MG TAB PO SCH (06:35)
[2016-02-26] MEDS: SODIUM CHLORIDE 0.9% FLUSH BAG 500 ML IV SCH (06:36)
[2016-02-26] MEDS: NEB-BROVANA 15 MCG/2 ML INH SCH ×2 (07:55→19:36)
[2016-02-26] MEDS: NEB-BUDESONIDE 0.5 MG INH SCH ×2 (07:55→19:36)
[2016-02-26] MEDS: SALINE FLUSH 10 ML FLUSH SCH ×2 (08:00→21:15)
[2016-02-26] MEDS: ASPIRIN 81 MG CHEW TAB PO SCH (08:00)
[2016-02-26 08:53] VITALS: BP_SYST 138; RESP 20; TEMP 97.8
[2016-02-26] MEDS: ISOSORBIDE MONO 30 MG TAB PO SCH (08:56)
[2016-02-26] MEDS: GABAPENTIN 600 MG TAB PO SCH ×3 (08:56→21:17)
[2016-02-26] MEDS: LINEZOLID 600 MG TAB PO SCH ×2 (08:56→21:18)
[2016-02-26] MEDS: Furosemide 20 MG TAB PO SCH ×2 (08:57→18:15)
[2016-02-26] MEDS: ROFLUMILAST 500 MCG TAB PO SCH (08:57)
[2016-02-26] MEDS: ASPIRIN EC 81 MG TAB PO SCH (08:57)
[2016-02-26] MEDS: LOPERAMIDE 2 MG CAPSULE PO SCH ×3 (08:57→21:18)
[2016-02-26] MEDS: PREDNISONE 20 MG TAB PO SCH (08:58)
[2016-02-26] MEDS: ENOXAPARIN 30 MG/0.3 ML SYR SUBQ SCH (09:00)
[2016-02-26] MEDS: LORAZEPAM 0.5 MG TAB PO PRN (09:26)
[2016-02-26 10:55] VITALS: BP_SYST 120; RESP 22; TEMP 97.3
[2016-02-26] MEDS ORDERED: KCL CR 20 MEQ TAB PO ONE (12:10)
[2016-02-26] MEDS: NEB-ALBUTEROL 2.5 MG/3 ML INH PRN ×3 (12:21→21:51)
[2016-02-26 15:17] VITALS: BP_SYST 140; RESP 20; TEMP 97.4
[2016-02-26] MEDS: KCL CR 20 MEQ TAB PO SCH (18:15)
[2016-02-26 20:34] VITALS: BP_SYST 140; RESP 18; TEMP 97.7
[2016-02-26] MEDS: Atorvastatin 20 MG TAB PO SCH (21:18)
[2016-02-26] MEDS ORDERED: PHARMACY TO DOSE XX SCH (22:25)
[2016-02-26] MEDS: ACETAMINOPHEN 325 MG TAB PO PRN (22:28)
[2016-02-26] MEDS: METRONIDAZOLE 500 MG TAB PO SCH (23:03)
[2016-02-27 00:20] VITALS: BP_SYST 132; RESP 20; TEMP 97.8
[2016-02-27] MEDS: DUONEB INH SCH ×6 (03:21→22:22)
[2016-02-27 04:16] VITALS: BP_SYST 140; RESP 20; TEMP 97.7
[2016-02-27] MEDS: PANTOPRAZOLE 40 MG TAB PO SCH (06:45)
[2016-02-27] MEDS: LEVOTHYROXINE 0.125 MG TAB PO SCH (06:45)
[2016-02-27] MEDS: SODIUM CHLORIDE 0.9% FLUSH BAG 500 ML IV SCH (06:46)
[2016-02-27] MEDS: NEB-BUDESONIDE 0.5 MG INH SCH ×2 (07:24→19:00)
[2016-02-27] MEDS: NEB-BROVANA 15 MCG/2 ML INH SCH ×2 (07:24→19:00)
[2016-02-27 07:42] VITALS: BP_SYST 140; RESP 20; TEMP 96.2
[2016-02-27] MEDS: NEB-ALBUTEROL 2.5 MG/3 ML INH PRN ×2 (09:49→13:54)
[2016-02-27] MEDS: GABAPENTIN 600 MG TAB PO SCH ×3 (10:22→21:38)
[2016-02-27] MEDS: LINEZOLID 600 MG TAB PO SCH ×2 (10:22→21:38)
[2016-02-27] MEDS: SALINE FLUSH 10 ML FLUSH SCH ×2 (10:22→21:38)
[2016-02-27] MEDS: PREDNISONE 20 MG TAB PO SCH (10:22)
[2016-02-27] MEDS: KCL CR 20 MEQ TAB PO SCH (10:22)
[2016-02-27] MEDS: ASPIRIN EC 81 MG TAB PO SCH (10:22)
[2016-02-27] MEDS: Furosemide 20 MG TAB PO SCH ×2 (10:22→17:47)
[2016-02-27] MEDS: ROFLUMILAST 500 MCG TAB PO SCH (10:22)
[2016-02-27] MEDS: ISOSORBIDE MONO 30 MG TAB PO SCH (10:22)
[2016-02-27] MEDS: METRONIDAZOLE 500 MG TAB PO SCH ×3 (10:22→21:38)
[2016-02-27] MEDS: ENOXAPARIN 30 MG/0.3 ML SYR SUBQ SCH (10:23)
[2016-02-27 11:03] VITALS: BP_SYST 134; RESP 20; TEMP 97.6
[2016-02-27] MEDS: LORAZEPAM 0.5 MG TAB PO PRN (11:41)
[2016-02-27 16:25] VITALS: BP_SYST 130; RESP 20; TEMP 97.2
[2016-02-27 19:44] VITALS: BP_SYST 144; RESP 16; TEMP 96.3
[2016-02-27] MEDS: *HOME MEDS IN MED CART XX SCH (20:00)
[2016-02-27] MEDS: Atorvastatin 20 MG TAB PO SCH (21:38)
[2016-02-27] MEDS: GUAIFENESIN ER 600 MG TABCR PO SCH (21:38)
[2016-02-27] MEDS: ACETAMINOPHEN 325 MG TAB PO PRN (21:57)
[2016-02-28 00:24] VITALS: BP_SYST 160; TEMP 96.8
[2016-02-28] MEDS: DUONEB INH SCH ×6 (02:37→22:24)
[2016-02-28 03:50] VITALS: BP_SYST 136; RESP 18; TEMP 97.1
[2016-02-28] MEDS: SODIUM CHLORIDE 0.9% FLUSH BAG 500 ML IV SCH (06:00)
[2016-02-28] MEDS: NON-FORMULARY MEDICATION PO SCH (06:13)
[2016-02-28] MEDS: LEVOTHYROXINE 0.125 MG TAB PO SCH (06:13)
[2016-02-28 07:18] VITALS: BP_SYST 132; RESP 20; TEMP 97.1
[2016-02-28] MEDS: NEB-BUDESONIDE 0.5 MG INH SCH ×2 (07:22→19:29)
[2016-02-28] MEDS: NEB-BROVANA 15 MCG/2 ML INH SCH ×2 (07:22→19:29)
[2016-02-28] MEDS: SALINE FLUSH 10 ML FLUSH SCH ×2 (08:00→20:00)
[2016-02-28] MEDS: *HOME MEDS IN MED CART XX SCH ×2 (08:00→20:00)
[2016-02-28] MEDS ORDERED: POTASSIUM CHLORIDE PREMIX 50 ML IV SCH (09:35)
[2016-02-28] MEDS: NEB-ALBUTEROL 2.5 MG/3 ML INH PRN ×2 (09:39→17:12)
[2016-02-28] MEDS: LINEZOLID 600 MG TAB PO SCH ×2 (09:55→21:40)
[2016-02-28] MEDS: METRONIDAZOLE 500 MG TAB PO SCH ×3 (09:55→21:40)
[2016-02-28] MEDS: Furosemide 20 MG TAB PO SCH ×2 (09:55→16:50)
[2016-02-28] MEDS: PREDNISONE 20 MG TAB PO SCH (09:55)
[2016-02-28] MEDS: GABAPENTIN 600 MG TAB PO SCH ×3 (09:56→21:40)
[2016-02-28] MEDS: KCL CR 20 MEQ TAB PO SCH (09:56)
[2016-02-28] MEDS: ISOSORBIDE MONO 30 MG TAB PO SCH (09:56)
[2016-02-28] MEDS: GUAIFENESIN ER 600 MG TABCR PO SCH ×2 (09:56→21:40)
[2016-02-28] MEDS: ASPIRIN EC 81 MG TAB PO SCH (09:56)
[2016-02-28] MEDS: ROFLUMILAST 500 MCG TAB PO SCH (09:56)
[2016-02-28] MEDS: ENOXAPARIN 30 MG/0.3 ML SYR SUBQ SCH (09:57)
[2016-02-28] MEDS: LORAZEPAM 0.5 MG TAB PO PRN (10:19)
[2016-02-28] MEDS ORDERED: KCL CR 20 MEQ TAB PO ONE (10:20)
[2016-02-28 10:43] VITALS: BP_SYST 142; RESP 20; TEMP 96.8
[2016-02-28 14:49] VITALS: BP_SYST 132; RESP 22; TEMP 97.9
[2016-02-28 19:40] VITALS: BP_SYST 122; TEMP 97.8
[2016-02-28] MEDS: ACETAMINOPHEN 325 MG TAB PO PRN (21:41)
[2016-02-28] MEDS: Atorvastatin 20 MG TAB PO SCH (21:46)
[2016-02-29 00:19] VITALS: BP_SYST 116; RESP 16; TEMP 97.6
[2016-02-29] MEDS: DUONEB INH SCH ×6 (02:52→23:08)
[2016-02-29 04:15] VITALS: BP_SYST 112; RESP 14; TEMP 97.5
[2016-02-29] MEDS: SODIUM CHLORIDE 0.9% FLUSH BAG 500 ML IV SCH (05:52)
[2016-02-29] MEDS: LEVOTHYROXINE 0.125 MG TAB PO SCH (06:32)
[2016-02-29] MEDS: NON-FORMULARY MEDICATION PO SCH (06:32)
[2016-02-29 07:22] VITALS: BP_SYST 140; RESP 20; TEMP 97.6
[2016-02-29] MEDS: NEB-BUDESONIDE 0.5 MG INH SCH ×2 (07:38→19:25)
[2016-02-29] MEDS: NEB-BROVANA 15 MCG/2 ML INH SCH ×2 (07:38→19:25)
[2016-02-29] MEDS: SALINE FLUSH 10 ML FLUSH SCH ×2 (08:00→20:00)
[2016-02-29] MEDS: *HOME MEDS IN MED CART XX SCH ×2 (08:00→19:26)
[2016-02-29] MEDS ORDERED: MISSING DOSE XX ONE ×2 (08:35→12:40)
[2016-02-29] MEDS: GUAIFENESIN ER 600 MG TABCR PO SCH ×2 (08:49→21:07)
[2016-02-29] MEDS: ISOSORBIDE MONO 30 MG TAB PO SCH (08:49)
[2016-02-29] MEDS: GABAPENTIN 600 MG TAB PO SCH ×3 (08:49→21:07)
[2016-02-29] MEDS: METRONIDAZOLE 500 MG TAB PO SCH ×3 (08:49→21:07)
[2016-02-29] MEDS: PREDNISONE 20 MG TAB PO SCH (08:50)
[2016-02-29] MEDS: Furosemide 20 MG TAB PO SCH ×2 (08:50→17:36)
[2016-02-29] MEDS: LINEZOLID 600 MG TAB PO SCH ×2 (08:50→21:07)
[2016-02-29] MEDS: ENOXAPARIN 30 MG/0.3 ML SYR SUBQ SCH (08:51)
[2016-02-29] MEDS: ASPIRIN EC 81 MG TAB PO SCH (08:52)
[2016-02-29] MEDS: ROFLUMILAST 500 MCG TAB PO SCH (08:52)
[2016-02-29] MEDS: KCL CR 20 MEQ TAB PO SCH (09:59)
[2016-02-29] MEDS: LORAZEPAM 0.5 MG TAB PO PRN (10:02)
[2016-02-29 10:56] VITALS: BP_SYST 98; RESP 20; TEMP 97.5
[2016-02-29] MEDS ORDERED: ONDANSETRON 4 MG TAB PO PRN (12:30)
[2016-02-29] MEDS: NYSTATIN SUSP FOR CPD 120 ML, DIPHENHYDRAMINE (FOR COMPOUND) 120 ML, HYDROCORT SOD SUC ... SWISH.SWAL SCH ×12 (12:48→21:07)
[2016-02-29] MEDS: ACETAMINOPHEN 325 MG TAB PO PRN (15:01)
[2016-02-29 15:50] VITALS: BP_SYST 112; RESP 20; TEMP 97.9
[2016-02-29] MEDS ORDERED: GLUCAGON 1 MG VIAL IM PRN (19:45)
[2016-02-29] MEDS ORDERED: DEXTROSE 50% SYRINGE 50 ML IV PRN (19:45)
[2016-02-29 19:52] VITALS: BP_SYST 110; RESP 20; TEMP 97.7
[2016-02-29] MEDS: Atorvastatin 20 MG TAB PO SCH (21:07)
[2016-03-01 00:06] VITALS: BP_SYST 118; RESP 20; TEMP 97.2
[2016-03-01] MEDS: DUONEB INH SCH ×6 (02:51→22:17)
[2016-03-01] MEDS: LEVOTHYROXINE 0.125 MG TAB PO SCH (04:47)
[2016-03-01] MEDS: NON-FORMULARY MEDICATION PO SCH (04:47)
[2016-03-01 06:34] VITALS: BP_SYST 112; RESP 20; TEMP 97.1
[2016-03-01] MEDS: NEB-BUDESONIDE 0.5 MG INH SCH ×2 (06:55→18:34)
[2016-03-01] MEDS: NEB-BROVANA 15 MCG/2 ML INH SCH ×2 (06:55→18:34)
[2016-03-01] MEDS: *HOME MEDS IN MED CART XX SCH ×2 (07:31→20:00)
[2016-03-01 07:32] VITALS: BP_SYST 132; RESP 20; TEMP 97.9
[2016-03-01] MEDS: METRONIDAZOLE 500 MG TAB PO SCH ×3 (09:13→21:03)
[2016-03-01] MEDS: ISOSORBIDE MONO 30 MG TAB PO SCH (09:13)
[2016-03-01] MEDS: ENOXAPARIN 30 MG/0.3 ML SYR SUBQ SCH (09:13)
[2016-03-01] MEDS: GABAPENTIN 600 MG TAB PO SCH ×3 (09:14→21:04)
[2016-03-01] MEDS: Furosemide 20 MG TAB PO SCH ×2 (09:14→16:47)
[2016-03-01] MEDS: GUAIFENESIN ER 600 MG TABCR PO SCH ×2 (09:14→21:03)
[2016-03-01] MEDS: LINEZOLID 600 MG TAB PO SCH ×2 (09:14→21:03)
[2016-03-01] MEDS: KCL CR 20 MEQ TAB PO SCH (09:14)
[2016-03-01] MEDS: PREDNISONE 20 MG TAB PO SCH (09:14)
[2016-03-01] MEDS: ASPIRIN EC 81 MG TAB PO SCH (09:14)
[2016-03-01] MEDS: ROFLUMILAST 500 MCG TAB PO SCH (09:14)
[2016-03-01] MEDS: NYSTATIN SUSP FOR CPD 120 ML, DIPHENHYDRAMINE (FOR COMPOUND) 120 ML, HYDROCORT SOD SUC ... SWISH.SWAL SCH ×12 (09:15→21:05)
[2016-03-01] MEDS ORDERED: MISSING DOSE XX ONE (09:20)
[2016-03-01] MEDS ORDERED: ONDANSETRON 4 MG TAB PO PRN (09:25)
[2016-03-01] MEDS: LORAZEPAM 0.5 MG TAB PO PRN (10:06)
[2016-03-01 11:17] VITALS: BP_SYST 122; RESP 20; TEMP 97.5
[2016-03-01 15:38] VITALS: BP_SYST 102; RESP 24; TEMP 98.4
[2016-03-01] MEDS: ACETAMINOPHEN 325 MG TAB PO PRN ×2 (16:47→21:04)
[2016-03-01 20:03] VITALS: BP_SYST 120; RESP 22; TEMP 97.5
[2016-03-01] MEDS: Atorvastatin 20 MG TAB PO SCH (21:03)
[2016-03-01] MEDS: humuLIN N INSULIN SUBQ SCH (21:06)
[2016-03-02 00:12] VITALS: BP_SYST 122; RESP 20; TEMP 96
[2016-03-02] MEDS: LEVOTHYROXINE 0.125 MG TAB PO SCH (06:29)
[2016-03-02] MEDS: NON-FORMULARY MEDICATION PO SCH (06:30)
[2016-03-02] MEDS: DUONEB INH SCH ×3 (07:00→14:57)
[2016-03-02] MEDS: NEB-BROVANA 15 MCG/2 ML INH SCH (07:24)
[2016-03-02] MEDS: NEB-BUDESONIDE 0.5 MG INH SCH (07:24)
[2016-03-02 08:07] VITALS: BP_SYST 140; RESP 20; TEMP 97.3
[2016-03-02] MEDS: *HOME MEDS IN MED CART XX SCH (09:48)
[2016-03-02] MEDS: GABAPENTIN 600 MG TAB PO SCH ×2 (09:54→15:59)
[2016-03-02] MEDS: PREDNISONE 20 MG TAB PO SCH (09:54)
[2016-03-02] MEDS: ISOSORBIDE MONO 30 MG TAB PO SCH (09:54)
[2016-03-02] MEDS: KCL CR 20 MEQ TAB PO SCH (09:55)
[2016-03-02] MEDS: Furosemide 20 MG TAB PO SCH ×2 (09:55→15:59)
[2016-03-02] MEDS: ASPIRIN EC 81 MG TAB PO SCH (09:55)
[2016-03-02] MEDS: ROFLUMILAST 500 MCG TAB PO SCH (09:55)
[2016-03-02] MEDS: LINEZOLID 600 MG TAB PO SCH (09:55)
[2016-03-02] MEDS: METRONIDAZOLE 500 MG TAB PO SCH ×2 (09:55→15:59)
[2016-03-02] MEDS: ENOXAPARIN 30 MG/0.3 ML SYR SUBQ SCH (09:55)
[2016-03-02] MEDS: GUAIFENESIN ER 600 MG TABCR PO SCH (09:55)
[2016-03-02] MEDS: humuLIN N INSULIN SUBQ SCH (09:56)
[2016-03-02] MEDS: NYSTATIN SUSP FOR CPD 120 ML, DIPHENHYDRAMINE (FOR COMPOUND) 120 ML, HYDROCORT SOD SUC ... SWISH.SWAL SCH ×9 (09:57→16:01)
[2016-03-02 10:34] VITALS: BP_SYST 150; TEMP 96.5
[2016-03-02] MEDS ORDERED: PHARMACY TO DOSE VANCOMYCIN IV SCH (12:00)
[2016-03-02] MEDS ORDERED: VANCOMYCIN 1,750 MG in SODIUM CHLORIDE 0.9% 500 ML IV SCH (13:00)
[2016-03-02] MEDS ORDERED: BENZOCAINE 7.5% MM PRN (13:40)
[2016-03-02] MEDS: LIDOCAINE 2% VISC 15 ML UDC SWISH.SPIT SCH ×2 (14:16→15:59)
[2016-03-02 15:15] VITALS: BP_SYST 110; RESP 20; TEMP 98.3
[2016-03-02] MEDS: LORAZEPAM 0.5 MG TAB PO PRN (15:59)
[2016-03-02 16:18] VITALS: BP_SYST 110; RESP 20; TEMP 98.3
[2016-03-03] MEDS ORDERED: VANCOMYCIN 1,750 MG in SODIUM CHLORIDE 0.9% 500 ML IV SCH (16:00)
== END 2016-03-02 16:51 | DRG 189 ==
LOC: ENRESERVDT → ENRESERVTM → ENPENDDIS 06:49 → 4THE 06:49 → PCU 08:12 → 4NT 02-25 15:39
PROVIDERS: ADMIT Hospitalist; ATTEND Hospitalist
DX: J96.21 Acute and chronic respiratory failure with hypoxia (principal); J15.212 Pneumonia due to Methicillin resistant Staphylococcus aureus; J18.9 Pneumonia, unspecified organism; I50.33 Acute on chronic diastolic (congestive) heart failure; B44.1 Other pulmonary aspergillosis; A04.7 Enterocolitis due to Clostridium difficile; I11.0 Hypertensive heart disease with heart failure; J44.0 Chronic obstructive pulmonary disease with (acute) lower respiratory infection; J44.1 Chronic obstructive pulmonary disease with (acute) exacerbation; Y95 Nosocomial condition; I25.10 Atherosclerotic heart disease of native coronary artery without angina pectoris; Z87.891 Personal history of nicotine dependence; E87.6 Hypokalemia; E78.5 Hyperlipidemia, unspecified; E11.9 Type 2 diabetes mellitus without complications; K12.0 Recurrent oral aphthae
CPT/HCPCS: 80048; 80053; 80061; 80069; 80202; 82550; 82947; 83735; 83880; 84100; 84439; 84443; 84484; 85025; 85610; 85730; 87071; 87077; 87186; 87205; 87493; 93005; 93306; 94640; 94762; 94799; 99223; 99232; 99233

== ENCOUNTER 2016-03-02 13:11 | Inpatient (IN) | payer MEDICARE ==
[~2016-03-02] VITALS: Ht 152.4 cm; Wt 77.3 kg
[2016-03-02] MEDS ORDERED: NITROGLYCERIN SL 0.4 MG TAB SL SCH (15:30)
[2016-03-02] MEDS ORDERED: PHARMACY TO DOSE VANCOMYCIN IV SCH (15:30)
[2016-03-02] MEDS ORDERED: PNEUMO VAC 25 MCG/0.5 ML VL IM.VACC ONE (15:30)
[2016-03-02] MEDS ORDERED: DEXTROSE 50% SYRINGE 50 ML IV PRN (15:30)
[2016-03-02] MEDS ORDERED: GLUCAGON 1 MG VIAL IM PRN (15:30)
[2016-03-02] MEDS: NEB-BROVANA 15 MCG/2 ML INH SCH (17:31)
[2016-03-02] MEDS: DUONEB INH SCH ×2 (17:31→23:29)
[2016-03-02] MEDS: NEB-BUDESONIDE 0.5 MG INH SCH (17:31)
[2016-03-02 17:38] VITALS: RESP 20
[2016-03-02] MEDS: GABAPENTIN 600 MG TAB PO SCH ×2 (18:13→21:34)
[2016-03-02] MEDS: METRONIDAZOLE 500 MG TAB PO SCH ×2 (18:13→21:34)
[2016-03-02] MEDS: Furosemide 20 MG TAB PO SCH (18:13)
[2016-03-02 19:28] VITALS: BMI 33.0
[2016-03-02 19:31] VITALS: BP_SYST 110; RESP 22; TEMP 97.7
[2016-03-02] MEDS ORDERED: TUBERCULIN PPD 5 UNIT SYR ID.VACC ONE (21:00)
[2016-03-02] MEDS: LIDOCAINE 2% VISC 15 ML UDC SWISH.SPIT SCH (21:33)
[2016-03-02] MEDS: Atorvastatin 20 MG TAB PO SCH (21:34)
[2016-03-02] MEDS: FERROUS SULF 325 MG TAB PO SCH (21:34)
[2016-03-02] MEDS: humuLIN N INSULIN SUBQ SCH (21:35)
[2016-03-03 01:22] VITALS: BP_SYST 118; RESP 20; TEMP 97.1
[2016-03-03] MEDS: DUONEB INH SCH ×6 (04:01→22:57)
[2016-03-03] MEDS: LIDOCAINE 2% VISC 15 ML UDC SWISH.SPIT SCH ×3 (06:17→16:13)
[2016-03-03] MEDS: LEVOTHYROXINE 0.125 MG TAB PO SCH (06:17)
[2016-03-03] MEDS ORDERED: NEXIUM 40 MG PO SCH (07:00)
[2016-03-03] MEDS: NEB-BUDESONIDE 0.5 MG INH SCH ×2 (07:55→19:46)
[2016-03-03] MEDS: NEB-BROVANA 15 MCG/2 ML INH SCH ×2 (07:55→19:46)
[2016-03-03] MEDS: humuLIN N INSULIN SUBQ SCH ×2 (08:56→20:45)
[2016-03-03] MEDS: ASPIRIN EC 81 MG TAB PO SCH (08:57)
[2016-03-03] MEDS: METRONIDAZOLE 500 MG TAB PO SCH ×3 (08:57→20:42)
[2016-03-03] MEDS: ROFLUMILAST 500 MCG TAB PO SCH (08:57)
[2016-03-03] MEDS: ISOSORBIDE MONO 30 MG TAB PO SCH (08:57)
[2016-03-03] MEDS: Furosemide 20 MG TAB PO SCH ×2 (08:58→16:13)
[2016-03-03] MEDS: CHOLECALCIFEROL 1,000 UNITS TAB PO SCH (08:58)
[2016-03-03] MEDS: GABAPENTIN 600 MG TAB PO SCH ×3 (08:58→20:52)
[2016-03-03] MEDS: MONTELUKAST 10 MG TAB PO SCH (08:58)
[2016-03-03] MEDS: SERTRALINE 25 MG TAB PO SCH (08:58)
[2016-03-03] MEDS ORDERED: CLOTRIMAZOLE 1% CR 15 GM TOPICAL SCH (09:00)
[2016-03-03] MEDS: FERROUS SULF 325 MG TAB PO SCH ×2 (09:03→20:43)
[2016-03-03] MEDS: LORAZEPAM 0.5 MG TAB PO PRN ×2 (09:09→17:30)
[2016-03-03 10:37] VITALS: Ht 152.4 cm; Wt 77.3 kg
[2016-03-03 12:14] VITALS: BP_SYST 110; RESP 18; TEMP 98.1
[2016-03-03] MEDS: ONDANSETRON 4 MG TAB PO PRN ×2 (12:18→17:30)
[2016-03-03 15:09] VITALS: BP_SYST 108; RESP 20; TEMP 98.2
[2016-03-03] MEDS ORDERED: VANCOMYCIN 1,750 MG in SODIUM CHLORIDE 0.9% 500 ML IV SCH (16:00)
[2016-03-03] MEDS ORDERED: SALINE FLUSH 10 ML FLUSH PRN (16:20)
[2016-03-03] MEDS: SODIUM CHLORIDE 0.9% FLUSH BAG 500 ML IV SCH (16:47)
[2016-03-03] MEDS ORDERED: *PINK BRACELET XX ONE (17:10)
[2016-03-03] MEDS ORDERED: GELCLAIR 15 ML GEL TOPICAL PRN (17:35)
[2016-03-03] MEDS: GELCLAIR 15 ML GEL TOPICAL SCH ×2 (17:35→20:53)
[2016-03-03] MEDS: FLUCONAZOLE 100 MG TAB PO SCH (18:31)
[2016-03-03] MEDS: *HOME MEDS IN MED CART XX SCH (20:00)
[2016-03-03] MEDS: SALINE FLUSH 10 ML FLUSH SCH (20:00)
[2016-03-03] MEDS: Atorvastatin 20 MG TAB PO SCH (20:42)
[2016-03-03] MEDS: ACETAMINOPHEN 325 MG TAB PO PRN (20:43)
[2016-03-03] MEDS: MICONAZOLE 2% PWD TOPICAL SCH (20:46)
[2016-03-04 00:56] VITALS: BP_SYST 110; RESP 20; TEMP 97.4
[2016-03-04] MEDS: DUONEB INH SCH ×6 (02:58→23:46)
[2016-03-04] MEDS: LIDOCAINE 2% VISC 15 ML UDC SWISH.SPIT SCH ×2 (06:12→11:57)
[2016-03-04] MEDS: LEVOTHYROXINE 0.125 MG TAB PO SCH (06:12)
[2016-03-04] MEDS: NEXIUM 40 MG PO SCH (06:13)
[2016-03-04] MEDS: ACETAMINOPHEN 325 MG TAB PO PRN ×3 (06:24→19:58)
[2016-03-04] MEDS: SODIUM CHLORIDE 0.9% FLUSH BAG 500 ML IV SCH (06:25)
[2016-03-04] MEDS: NEB-BUDESONIDE 0.5 MG INH SCH ×2 (07:08→20:24)
[2016-03-04] MEDS: NEB-BROVANA 15 MCG/2 ML INH SCH ×2 (07:08→20:24)
[2016-03-04] MEDS: *HOME MEDS IN MED CART XX SCH ×2 (08:00→19:48)
[2016-03-04] MEDS: ROFLUMILAST 500 MCG TAB PO SCH (08:18)
[2016-03-04] MEDS: ONDANSETRON 4 MG TAB PO PRN (08:18)
[2016-03-04] MEDS: humuLIN N INSULIN SUBQ SCH ×2 (08:18→21:36)
[2016-03-04] MEDS: LORAZEPAM 0.5 MG TAB PO PRN (08:18)
[2016-03-04] MEDS: ASPIRIN EC 81 MG TAB PO SCH (08:19)
[2016-03-04] MEDS: FERROUS SULF 325 MG TAB PO SCH ×2 (08:19→21:35)
[2016-03-04] MEDS: FLUCONAZOLE 100 MG TAB PO SCH (08:19)
[2016-03-04] MEDS: Furosemide 20 MG TAB PO SCH ×2 (08:20→16:43)
[2016-03-04] MEDS: CHOLECALCIFEROL 1,000 UNITS TAB PO SCH (08:20)
[2016-03-04] MEDS: MONTELUKAST 10 MG TAB PO SCH (08:21)
[2016-03-04] MEDS: GABAPENTIN 600 MG TAB PO SCH ×3 (08:21→21:35)
[2016-03-04] MEDS: METRONIDAZOLE 500 MG TAB PO SCH ×3 (08:21→21:35)
[2016-03-04] MEDS: ISOSORBIDE MONO 30 MG TAB PO SCH (08:21)
[2016-03-04] MEDS: SERTRALINE 25 MG TAB PO SCH (08:21)
[2016-03-04] MEDS: SALINE FLUSH 10 ML FLUSH SCH ×2 (08:24→21:41)
[2016-03-04] MEDS: GELCLAIR 15 ML GEL TOPICAL SCH (08:26)
[2016-03-04] MEDS: MICONAZOLE 2% PWD TOPICAL SCH ×2 (08:26→21:36)
[2016-03-04 10:24] VITALS: BP_SYST 112; RESP 20; TEMP 98.3
[2016-03-04 16:16] VITALS: BP_SYST 118; RESP 20; TEMP 98.4
[2016-03-04] MEDS: TRIAMCINOLONE 0.1% TOPICAL SCH ×2 (16:46→21:40)
[2016-03-04] MEDS: LIDOCAINE 2% VISC 80 ML, DIPHENHYDRAMINE (FOR COMPOUND) 80 ML, NYSTATIN SUSP FOR CPD 80 ML SWISH.SWAL SCH ×6 (17:24→21:39)
[2016-03-04] MEDS: SKIN TEST: READ AND RECORD XX SCH (21:00)
[2016-03-04] MEDS: Atorvastatin 20 MG TAB PO SCH (21:35)
[2016-03-05 00:10] VITALS: BP_SYST 110; RESP 20; TEMP 97.5
[2016-03-05] MEDS: ONDANSETRON 4 MG TAB PO PRN ×2 (00:22→09:56)
[2016-03-05] MEDS: DUONEB INH SCH ×6 (02:35→23:28)
[2016-03-05] MEDS: SODIUM CHLORIDE 0.9% FLUSH BAG 500 ML IV SCH (06:00)
[2016-03-05] MEDS: NEXIUM 40 MG PO SCH (06:26)
[2016-03-05] MEDS: LEVOTHYROXINE 0.125 MG TAB PO SCH (06:26)
[2016-03-05] MEDS: TRIAMCINOLONE 0.1% TOPICAL SCH ×4 (06:27→22:19)
[2016-03-05] MEDS: NEB-BROVANA 15 MCG/2 ML INH SCH ×2 (07:02→18:53)
[2016-03-05] MEDS: NEB-BUDESONIDE 0.5 MG INH SCH ×2 (07:02→18:53)
[2016-03-05] MEDS: ACETAMINOPHEN 325 MG TAB PO PRN ×2 (07:39→22:31)
[2016-03-05] MEDS: SALINE FLUSH 10 ML FLUSH SCH ×2 (07:49→22:18)
[2016-03-05] MEDS: *HOME MEDS IN MED CART XX SCH ×2 (08:00→22:10)
[2016-03-05] MEDS ORDERED: MISSING DOSE XX ONE (08:35)
[2016-03-05] MEDS: FLUCONAZOLE 100 MG TAB PO SCH (09:23)
[2016-03-05] MEDS: MONTELUKAST 10 MG TAB PO SCH (09:23)
[2016-03-05] MEDS: GABAPENTIN 600 MG TAB PO SCH ×3 (09:23→22:16)
[2016-03-05] MEDS: CHOLECALCIFEROL 1,000 UNITS TAB PO SCH (09:23)
[2016-03-05] MEDS: ISOSORBIDE MONO 30 MG TAB PO SCH (09:23)
[2016-03-05] MEDS: FERROUS SULF 325 MG TAB PO SCH ×2 (09:24→22:17)
[2016-03-05] MEDS: LIDOCAINE 2% VISC 80 ML, DIPHENHYDRAMINE (FOR COMPOUND) 80 ML, NYSTATIN SUSP FOR CPD 80 ML SWISH.SWAL SCH ×12 (09:24→22:18)
[2016-03-05] MEDS: ROFLUMILAST 500 MCG TAB PO SCH (09:24)
[2016-03-05] MEDS: ASPIRIN EC 81 MG TAB PO SCH (09:24)
[2016-03-05] MEDS: Furosemide 20 MG TAB PO SCH ×2 (09:24→18:11)
[2016-03-05] MEDS: METRONIDAZOLE 500 MG TAB PO SCH ×3 (09:24→22:16)
[2016-03-05] MEDS: MICONAZOLE 2% PWD TOPICAL SCH ×2 (09:25→22:19)
[2016-03-05] MEDS: SERTRALINE 25 MG TAB PO SCH (09:35)
[2016-03-05] MEDS: LORAZEPAM 0.5 MG TAB PO PRN (09:35)
[2016-03-05] MEDS: humuLIN N INSULIN SUBQ SCH ×2 (09:36→22:16)
[2016-03-05 12:00] VITALS: BP_SYST 116; RESP 18; TEMP 97.4
[2016-03-05 19:05] VITALS: BP_SYST 108; RESP 20; TEMP 97.6
[2016-03-05] MEDS: Atorvastatin 20 MG TAB PO SCH (22:17)
[2016-03-06] MEDS: DUONEB INH SCH ×6 (02:34→23:38)
[2016-03-06] MEDS ORDERED: MISSING DOSE XX ONE ×3 (06:30→14:45)
[2016-03-06] MEDS: NEXIUM 40 MG PO SCH (06:34)
[2016-03-06] MEDS: LEVOTHYROXINE 0.125 MG TAB PO SCH (06:35)
[2016-03-06] MEDS: TRIAMCINOLONE 0.1% TOPICAL SCH ×2 (06:35→11:00)
[2016-03-06] MEDS: NEB-BROVANA 15 MCG/2 ML INH SCH ×2 (07:32→19:39)
[2016-03-06] MEDS: NEB-BUDESONIDE 0.5 MG INH SCH ×2 (07:32→19:39)
[2016-03-06] MEDS: *HOME MEDS IN MED CART XX SCH ×2 (08:00→20:00)
[2016-03-06] MEDS: humuLIN N INSULIN SUBQ SCH ×2 (08:12→20:54)
[2016-03-06] MEDS: LIDOCAINE 2% VISC 80 ML, DIPHENHYDRAMINE (FOR COMPOUND) 80 ML, NYSTATIN SUSP FOR CPD 80 ML SWISH.SWAL SCH ×15 (08:13→20:54)
[2016-03-06] MEDS: ONDANSETRON 4 MG TAB PO PRN (08:20)
[2016-03-06] MEDS: ASPIRIN EC 81 MG TAB PO SCH (09:00)
[2016-03-06 09:48] VITALS: BP_SYST 130; TEMP 97.6
[2016-03-06] MEDS: Furosemide 20 MG TAB PO SCH ×2 (10:45→17:03)
[2016-03-06] MEDS: GABAPENTIN 600 MG TAB PO SCH ×3 (10:45→20:51)
[2016-03-06] MEDS: ROFLUMILAST 500 MCG TAB PO SCH (10:45)
[2016-03-06] MEDS: ISOSORBIDE MONO 30 MG TAB PO SCH (10:45)
[2016-03-06] MEDS: FLUCONAZOLE 100 MG TAB PO SCH (10:45)
[2016-03-06] MEDS: FERROUS SULF 325 MG TAB PO SCH ×2 (10:46→21:04)
[2016-03-06] MEDS: METRONIDAZOLE 500 MG TAB PO SCH ×3 (10:46→20:51)
[2016-03-06] MEDS: LORAZEPAM 0.5 MG TAB PO PRN (10:46)
[2016-03-06] MEDS: MONTELUKAST 10 MG TAB PO SCH (10:46)
[2016-03-06] MEDS: SERTRALINE 25 MG TAB PO SCH (10:46)
[2016-03-06] MEDS: CHOLECALCIFEROL 1,000 UNITS TAB PO SCH (10:46)
[2016-03-06] MEDS: ACETAMINOPHEN 325 MG TAB PO PRN ×2 (10:47→21:02)
[2016-03-06] MEDS: MICONAZOLE 2% PWD TOPICAL SCH ×2 (10:49→20:55)
[2016-03-06 14:09] VITALS: RESP 20
[2016-03-06 19:37] VITALS: BP_SYST 132; RESP 20; TEMP 97.6
[2016-03-06] MEDS: Atorvastatin 20 MG TAB PO SCH (20:51)
[2016-03-07] MEDS: DUONEB INH SCH ×6 (02:59→22:53)
[2016-03-07 03:26] VITALS: BP_SYST 110; RESP 20; TEMP 97.4
[2016-03-07] MEDS: LEVOTHYROXINE 0.125 MG TAB PO SCH (06:36)
[2016-03-07] MEDS: NEXIUM 40 MG PO SCH (06:36)
[2016-03-07] MEDS: NEB-BUDESONIDE 0.5 MG INH SCH ×2 (06:55→19:22)
[2016-03-07] MEDS: NEB-BROVANA 15 MCG/2 ML INH SCH ×2 (06:55→19:22)
[2016-03-07] MEDS: *HOME MEDS IN MED CART XX SCH ×2 (07:56→22:24)
[2016-03-07] MEDS: humuLIN N INSULIN SUBQ SCH ×2 (08:50→22:22)
[2016-03-07] MEDS: FERROUS SULF 325 MG TAB PO SCH ×2 (08:52→22:17)
[2016-03-07] MEDS: ASPIRIN EC 81 MG TAB PO SCH (08:53)
[2016-03-07] MEDS: METRONIDAZOLE 500 MG TAB PO SCH ×3 (08:53→22:17)
[2016-03-07] MEDS: CHOLECALCIFEROL 1,000 UNITS TAB PO SCH (08:53)
[2016-03-07] MEDS: MONTELUKAST 10 MG TAB PO SCH (08:53)
[2016-03-07] MEDS: SERTRALINE 25 MG TAB PO SCH (08:53)
[2016-03-07] MEDS: ISOSORBIDE MONO 30 MG TAB PO SCH (08:53)
[2016-03-07] MEDS: ROFLUMILAST 500 MCG TAB PO SCH (08:53)
[2016-03-07] MEDS: Furosemide 20 MG TAB PO SCH ×2 (08:53→17:28)
[2016-03-07] MEDS: GABAPENTIN 600 MG TAB PO SCH ×3 (08:53→22:17)
[2016-03-07] MEDS: LIDOCAINE 2% VISC 80 ML, DIPHENHYDRAMINE (FOR COMPOUND) 80 ML, NYSTATIN SUSP FOR CPD 80 ML SWISH.SWAL SCH ×16 (08:54→22:18)
[2016-03-07] MEDS: FLUCONAZOLE 100 MG TAB PO SCH (08:54)
[2016-03-07] MEDS: MICONAZOLE 2% PWD TOPICAL SCH ×2 (08:55→22:24)
[2016-03-07] MEDS: LORAZEPAM 0.5 MG TAB PO PRN (09:03)
[2016-03-07] MEDS: ACETAMINOPHEN 325 MG TAB PO PRN ×2 (09:05→19:53)
[2016-03-07 10:58] VITALS: BP_SYST 108; RESP 20; TEMP 97.6
[2016-03-07] MEDS: Docosanol 10% Cream 2 Gm TOPICAL SCH ×3 (14:33→22:24)
[2016-03-07 15:21] VITALS: BP_SYST 124; RESP 22
[2016-03-07] MEDS: Atorvastatin 20 MG TAB PO SCH (22:17)
[2016-03-08] MEDS: DUONEB INH SCH ×6 (02:18→23:21)
[2016-03-08 02:25] VITALS: BP_SYST 110; RESP 20; TEMP 97.6
[2016-03-08] MEDS: NEXIUM 40 MG PO SCH (06:07)
[2016-03-08] MEDS: LEVOTHYROXINE 0.125 MG TAB PO SCH (06:07)
[2016-03-08] MEDS: Docosanol 10% Cream 2 Gm TOPICAL SCH ×5 (06:08→21:53)
[2016-03-08] MEDS: NEB-BROVANA 15 MCG/2 ML INH SCH ×2 (07:03→18:58)
[2016-03-08] MEDS: NEB-BUDESONIDE 0.5 MG INH SCH ×2 (07:03→18:58)
[2016-03-08] MEDS: *HOME MEDS IN MED CART XX SCH ×2 (08:00→19:52)
[2016-03-08 08:30] VITALS: BP_SYST 112; RESP 20; TEMP 97.8
[2016-03-08] MEDS: humuLIN N INSULIN SUBQ SCH ×2 (09:29→21:49)
[2016-03-08] MEDS: LIDOCAINE 2% VISC 80 ML, DIPHENHYDRAMINE (FOR COMPOUND) 80 ML, NYSTATIN SUSP FOR CPD 80 ML SWISH.SWAL SCH ×16 (09:29→21:49)
[2016-03-08] MEDS: FERROUS SULF 325 MG TAB PO SCH ×2 (09:30→21:48)
[2016-03-08] MEDS: ISOSORBIDE MONO 30 MG TAB PO SCH (09:30)
[2016-03-08] MEDS: Furosemide 20 MG TAB PO SCH ×2 (09:30→17:51)
[2016-03-08] MEDS: GABAPENTIN 600 MG TAB PO SCH ×3 (09:30→21:48)
[2016-03-08] MEDS: ASPIRIN EC 81 MG TAB PO SCH (09:30)
[2016-03-08] MEDS: MONTELUKAST 10 MG TAB PO SCH (09:31)
[2016-03-08] MEDS: FLUCONAZOLE 100 MG TAB PO SCH (09:31)
[2016-03-08] MEDS: SERTRALINE 25 MG TAB PO SCH (09:31)
[2016-03-08] MEDS: ROFLUMILAST 500 MCG TAB PO SCH (09:31)
[2016-03-08] MEDS: MICONAZOLE 2% PWD TOPICAL SCH ×2 (09:35→21:54)
[2016-03-08] MEDS: CHOLECALCIFEROL 1,000 UNITS TAB PO SCH (10:51)
[2016-03-08] MEDS: LORAZEPAM 0.5 MG TAB PO PRN (10:51)
[2016-03-08] MEDS ORDERED: VANCOMYCIN SUSP 250 MG/5 ML UDC PO SCH (13:00)
[2016-03-08] MEDS: ACETAMINOPHEN 325 MG TAB PO PRN (13:07)
[2016-03-08 16:31] VITALS: BP_SYST 108; RESP 20; TEMP 97.5
[2016-03-08] MEDS ORDERED: MISSING DOSE XX ONE (17:55)
[2016-03-08] MEDS: VANCOMYCIN SUSP 250 MG/5 ML UDC PO SCH ×2 (18:00→21:48)
[2016-03-08] MEDS: Atorvastatin 20 MG TAB PO SCH (21:48)
[2016-03-08 23:43] VITALS: BP_SYST 112; RESP 20; TEMP 97.2
[2016-03-09] MEDS: DUONEB INH SCH ×6 (02:40→22:32)
[2016-03-09] MEDS: NEB-BROVANA 15 MCG/2 ML INH SCH ×2 (05:58→19:22)
[2016-03-09] MEDS: NEB-BUDESONIDE 0.5 MG INH SCH ×2 (05:58→19:22)
[2016-03-09] MEDS: Docosanol 10% Cream 2 Gm TOPICAL SCH ×5 (06:28→22:02)
[2016-03-09] MEDS: NEXIUM 40 MG PO SCH (06:28)
[2016-03-09] MEDS: LEVOTHYROXINE 0.125 MG TAB PO SCH (06:29)
[2016-03-09] MEDS: *HOME MEDS IN MED CART XX SCH ×2 (08:00→20:00)
[2016-03-09] MEDS: VANCOMYCIN SUSP 250 MG/5 ML UDC PO SCH ×4 (09:56→21:56)
[2016-03-09] MEDS: FLUCONAZOLE 100 MG TAB PO SCH (09:56)
[2016-03-09] MEDS: GABAPENTIN 600 MG TAB PO SCH ×3 (09:56→21:53)
[2016-03-09] MEDS: ISOSORBIDE MONO 30 MG TAB PO SCH (09:56)
[2016-03-09] MEDS: CHOLECALCIFEROL 1,000 UNITS TAB PO SCH (09:56)
[2016-03-09] MEDS: humuLIN N INSULIN SUBQ SCH ×2 (09:56→21:00)
[2016-03-09] MEDS: Furosemide 20 MG TAB PO SCH ×2 (09:57→17:28)
[2016-03-09] MEDS: SERTRALINE 25 MG TAB PO SCH (09:57)
[2016-03-09] MEDS: ROFLUMILAST 500 MCG TAB PO SCH (09:57)
[2016-03-09] MEDS: LORAZEPAM 0.5 MG TAB PO PRN (09:57)
[2016-03-09] MEDS: FERROUS SULF 325 MG TAB PO SCH ×2 (09:57→21:53)
[2016-03-09] MEDS: ASPIRIN EC 81 MG TAB PO SCH (09:57)
[2016-03-09] MEDS: MONTELUKAST 10 MG TAB PO SCH (09:57)
[2016-03-09] MEDS: ACETAMINOPHEN 325 MG TAB PO PRN ×2 (09:58→21:54)
[2016-03-09] MEDS: MICONAZOLE 2% PWD TOPICAL SCH ×2 (10:03→22:02)
[2016-03-09] MEDS: LIDOCAINE 2% VISC 80 ML, DIPHENHYDRAMINE (FOR COMPOUND) 80 ML, NYSTATIN SUSP FOR CPD 80 ML SWISH.SWAL SCH ×16 (10:03→21:54)
[2016-03-09 11:13] VITALS: BP_SYST 110; RESP 20; TEMP 97.4
[2016-03-09] MEDS: KCL CR 20 MEQ TAB PO SCH ×2 (17:26→17:33)
[2016-03-09] MEDS ORDERED: MISSING DOSE XX ONE ×2 (18:10→22:20)
[2016-03-09 18:15] VITALS: BP_SYST 110; RESP 20; TEMP 98
[2016-03-09] MEDS ORDERED: TUBERCULIN PPD 5 UNIT SYR ID.VACC ONE (21:00)
[2016-03-09] MEDS: Atorvastatin 20 MG TAB PO SCH (21:53)
[2016-03-09] MEDS: ALUMINUM ACETATE TOPICAL SCH (22:42)
[2016-03-10 01:33] VITALS: BP_SYST 108; RESP 20; TEMP 97.4
[2016-03-10] MEDS: DUONEB INH SCH ×6 (03:00→23:00)
[2016-03-10] MEDS: LEVOTHYROXINE 0.125 MG TAB PO SCH (06:10)
[2016-03-10] MEDS: NEXIUM 40 MG PO SCH (06:10)
[2016-03-10] MEDS: Docosanol 10% Cream 2 Gm TOPICAL SCH ×5 (06:11→22:57)
[2016-03-10] MEDS: NEB-BUDESONIDE 0.5 MG INH SCH ×2 (07:43→19:43)
[2016-03-10] MEDS: NEB-BROVANA 15 MCG/2 ML INH SCH ×2 (07:43→19:43)
[2016-03-10] MEDS: *HOME MEDS IN MED CART XX SCH ×2 (08:00→20:00)
[2016-03-10] MEDS: ASPIRIN EC 81 MG TAB PO SCH (09:05)
[2016-03-10] MEDS: VANCOMYCIN SUSP 250 MG/5 ML UDC PO SCH ×4 (09:05→21:22)
[2016-03-10] MEDS: GABAPENTIN 600 MG TAB PO SCH ×3 (09:06→21:20)
[2016-03-10] MEDS: ROFLUMILAST 500 MCG TAB PO SCH (09:06)
[2016-03-10] MEDS: ISOSORBIDE MONO 30 MG TAB PO SCH (09:06)
[2016-03-10] MEDS: MONTELUKAST 10 MG TAB PO SCH (09:06)
[2016-03-10] MEDS: Furosemide 20 MG TAB PO SCH ×2 (09:06→17:27)
[2016-03-10] MEDS: FLUCONAZOLE 100 MG TAB PO SCH (09:06)
[2016-03-10] MEDS: FERROUS SULF 325 MG TAB PO SCH ×2 (09:06→21:20)
[2016-03-10] MEDS: MICONAZOLE 2% PWD TOPICAL SCH ×2 (09:07→21:26)
[2016-03-10] MEDS: CHOLECALCIFEROL 1,000 UNITS TAB PO SCH (09:07)
[2016-03-10] MEDS: LIDOCAINE 2% VISC 80 ML, DIPHENHYDRAMINE (FOR COMPOUND) 80 ML, NYSTATIN SUSP FOR CPD 80 ML SWISH.SWAL SCH ×16 (09:07→21:23)
[2016-03-10] MEDS: SERTRALINE 25 MG TAB PO SCH (09:07)
[2016-03-10] MEDS: ALUMINUM ACETATE TOPICAL SCH ×2 (09:08→22:57)
[2016-03-10] MEDS: LORAZEPAM 0.5 MG TAB PO PRN (09:22)
[2016-03-10] MEDS: ACETAMINOPHEN 325 MG TAB PO PRN (09:23)
[2016-03-10] MEDS: humuLIN N INSULIN SUBQ SCH ×2 (09:24→21:00)
[2016-03-10] MEDS ORDERED: KCL CR 20 MEQ TAB PO ONE (11:50)
[2016-03-10 12:27] VITALS: BP_SYST 110; RESP 20; TEMP 97.6
[2016-03-10] MEDS: CHOLESTYRAMINE 4 GM PKT PO SCH (12:48)
[2016-03-10 15:53] VITALS: BP_SYST 110; RESP 20; TEMP 97.2
[2016-03-10] MEDS: Atorvastatin 20 MG TAB PO SCH (21:20)
[2016-03-10] MEDS: TRIAMCINOLONE 0.1% TOPICAL SCH (21:24)
[2016-03-11] MEDS: DUONEB INH SCH ×6 (02:57→22:36)
[2016-03-11 05:50] VITALS: BP_SYST 100; RESP 20
[2016-03-11 05:52] VITALS: TEMP 97.9
[2016-03-11] MEDS: LEVOTHYROXINE 0.125 MG TAB PO SCH (06:05)
[2016-03-11] MEDS: NEXIUM 40 MG PO SCH (06:05)
[2016-03-11] MEDS: Docosanol 10% Cream 2 Gm TOPICAL SCH ×5 (06:05→22:52)
[2016-03-11] MEDS: NEB-BROVANA 15 MCG/2 ML INH SCH (07:15)
[2016-03-11] MEDS: NEB-BUDESONIDE 0.5 MG INH SCH (07:15)
[2016-03-11] MEDS: *HOME MEDS IN MED CART XX SCH ×2 (08:00→20:00)
[2016-03-11] MEDS: humuLIN N INSULIN SUBQ SCH ×2 (09:19→21:53)
[2016-03-11] MEDS: FERROUS SULF 325 MG TAB PO SCH ×2 (09:20→21:52)
[2016-03-11] MEDS: MONTELUKAST 10 MG TAB PO SCH (09:20)
[2016-03-11] MEDS: ROFLUMILAST 500 MCG TAB PO SCH (09:20)
[2016-03-11] MEDS: SERTRALINE 25 MG TAB PO SCH (09:20)
[2016-03-11] MEDS: GABAPENTIN 600 MG TAB PO SCH ×3 (09:20→21:52)
[2016-03-11] MEDS: ASPIRIN EC 81 MG TAB PO SCH (09:20)
[2016-03-11] MEDS: CHOLECALCIFEROL 1,000 UNITS TAB PO SCH (09:20)
[2016-03-11] MEDS: ISOSORBIDE MONO 30 MG TAB PO SCH (09:20)
[2016-03-11] MEDS: Furosemide 20 MG TAB PO SCH ×2 (09:20→16:29)
[2016-03-11] MEDS: VANCOMYCIN SUSP 250 MG/5 ML UDC PO SCH ×4 (09:21→21:52)
[2016-03-11] MEDS: CHOLESTYRAMINE 4 GM PKT PO SCH ×3 (09:21→22:57)
[2016-03-11] MEDS: LIDOCAINE 2% VISC 80 ML, DIPHENHYDRAMINE (FOR COMPOUND) 80 ML, NYSTATIN SUSP FOR CPD 80 ML SWISH.SWAL SCH ×16 (09:25→21:51)
[2016-03-11] MEDS: TRIAMCINOLONE 0.1% TOPICAL SCH ×2 (09:26→21:00)
[2016-03-11] MEDS: MICONAZOLE 2% PWD TOPICAL SCH ×2 (09:29→21:53)
[2016-03-11] MEDS: LORAZEPAM 0.5 MG TAB PO PRN (09:34)
[2016-03-11] MEDS: ACETAMINOPHEN 325 MG TAB PO PRN (09:35)
[2016-03-11 12:09] VITALS: BP_SYST 104; RESP 20; TEMP 98
[2016-03-11] MEDS: ALUMINUM ACETATE TOPICAL SCH (14:47)
[2016-03-11 16:17] VITALS: BP_SYST 102; RESP 20; TEMP 97.6
[2016-03-11] MEDS ORDERED: CEPASTAT LOZENGE PO PRN (17:10)
[2016-03-11] MEDS: Atorvastatin 20 MG TAB PO SCH (21:52)
[2016-03-11] MEDS: SKIN TEST: READ AND RECORD XX SCH (21:59)
[2016-03-12] MEDS: DUONEB INH SCH ×3 (03:09→11:05)
[2016-03-12] MEDS: ALUMINUM ACETATE TOPICAL SCH ×2 (03:32→16:21)
[2016-03-12 05:14] VITALS: BP_SYST 110; RESP 20; TEMP 98.4
[2016-03-12] MEDS: NEXIUM 40 MG PO SCH (06:15)
[2016-03-12] MEDS: LEVOTHYROXINE 0.125 MG TAB PO SCH (06:15)
[2016-03-12] MEDS: Docosanol 10% Cream 2 Gm TOPICAL SCH ×5 (06:15→21:44)
[2016-03-12] MEDS: *HOME MEDS IN MED CART XX SCH ×2 (08:00→20:00)
[2016-03-12] MEDS: GABAPENTIN 600 MG TAB PO SCH ×3 (09:00→21:39)
[2016-03-12] MEDS: FERROUS SULF 325 MG TAB PO SCH ×2 (09:00→21:39)
[2016-03-12] MEDS: ISOSORBIDE MONO 30 MG TAB PO SCH (09:00)
[2016-03-12] MEDS: SERTRALINE 25 MG TAB PO SCH (09:00)
[2016-03-12] MEDS: MONTELUKAST 10 MG TAB PO SCH (09:00)
[2016-03-12] MEDS: ROFLUMILAST 500 MCG TAB PO SCH (09:00)
[2016-03-12] MEDS: CHOLESTYRAMINE 4 GM PKT PO SCH ×3 (09:00→21:38)
[2016-03-12] MEDS: ASPIRIN EC 81 MG TAB PO SCH (09:00)
[2016-03-12] MEDS: TRIAMCINOLONE 0.1% TOPICAL SCH ×2 (09:00→21:46)
[2016-03-12 10:30] VITALS: BP_SYST 106; RESP 20; TEMP 98.2
[2016-03-12] MEDS: LORAZEPAM 0.5 MG TAB PO PRN (10:47)
[2016-03-12] MEDS: CHOLECALCIFEROL 1,000 UNITS TAB PO SCH (10:47)
[2016-03-12] MEDS: VANCOMYCIN SUSP 250 MG/5 ML UDC PO SCH ×3 (10:47→18:03)
[2016-03-12] MEDS: MICONAZOLE 2% PWD TOPICAL SCH ×2 (10:49→21:43)
[2016-03-12] MEDS: LIDOCAINE 2% VISC 80 ML, DIPHENHYDRAMINE (FOR COMPOUND) 80 ML, NYSTATIN SUSP FOR CPD 80 ML SWISH.SWAL SCH ×16 (10:49→21:42)
[2016-03-12] MEDS: humuLIN N INSULIN SUBQ SCH ×2 (11:18→21:41)
[2016-03-12] MEDS: ACETAMINOPHEN 325 MG TAB PO PRN (13:00)
[2016-03-12] MEDS: NEB-ALBUTEROL 2.5 MG/3 ML INH SCH ×3 (14:59→22:25)
[2016-03-12 16:36] VITALS: BP_SYST 130; RESP 20; TEMP 96.6
[2016-03-12] MEDS: Furosemide 20 MG TAB PO SCH (17:40)
[2016-03-12] MEDS: CEPACOL LOZENGE PO PRN (17:40)
[2016-03-12] MEDS: Atorvastatin 20 MG TAB PO SCH (21:40)
[2016-03-13] MEDS: VANCOMYCIN SUSP 250 MG/5 ML UDC PO SCH ×4 (00:13→17:23)
[2016-03-13] MEDS: ALUMINUM ACETATE TOPICAL SCH ×3 (00:39→21:49)
[2016-03-13] MEDS: NEB-ALBUTEROL 2.5 MG/3 ML INH SCH ×6 (04:38→23:22)
[2016-03-13 05:20] VITALS: BP_SYST 104; RESP 20; TEMP 98.2
[2016-03-13] MEDS: LEVOTHYROXINE 0.125 MG TAB PO SCH (06:35)
[2016-03-13] MEDS: NEXIUM 40 MG PO SCH (06:36)
[2016-03-13] MEDS: Docosanol 10% Cream 2 Gm TOPICAL SCH ×5 (06:36→22:04)
[2016-03-13] MEDS: *HOME MEDS IN MED CART XX SCH ×2 (08:00→20:00)
[2016-03-13] MEDS: CHOLESTYRAMINE 4 GM PKT PO SCH ×3 (09:00→21:47)
[2016-03-13] MEDS: FERROUS SULF 325 MG TAB PO SCH ×2 (09:00→21:46)
[2016-03-13] MEDS: ISOSORBIDE MONO 30 MG TAB PO SCH (09:00)
[2016-03-13] MEDS: GABAPENTIN 600 MG TAB PO SCH ×3 (09:00→21:46)
[2016-03-13] MEDS: Furosemide 20 MG TAB PO SCH (09:00)
[2016-03-13] MEDS: CHOLECALCIFEROL 1,000 UNITS TAB PO SCH (09:00)
[2016-03-13] MEDS: ROFLUMILAST 500 MCG TAB PO SCH (09:00)
[2016-03-13] MEDS: SERTRALINE 25 MG TAB PO SCH (09:00)
[2016-03-13] MEDS: MONTELUKAST 10 MG TAB PO SCH (09:00)
[2016-03-13] MEDS: ASPIRIN EC 81 MG TAB PO SCH (09:00)
[2016-03-13] MEDS: humuLIN N INSULIN SUBQ SCH ×2 (09:00→21:48)
[2016-03-13] MEDS: MICONAZOLE 2% PWD TOPICAL SCH ×2 (09:00→21:50)
[2016-03-13] MEDS: TRIAMCINOLONE 0.1% TOPICAL SCH ×2 (09:00→21:49)
[2016-03-13] MEDS: LIDOCAINE 2% VISC 80 ML, DIPHENHYDRAMINE (FOR COMPOUND) 80 ML, NYSTATIN SUSP FOR CPD 80 ML SWISH.SWAL SCH ×16 (10:02→21:48)
[2016-03-13] MEDS: ACETAMINOPHEN 325 MG TAB PO PRN (10:07)
[2016-03-13 10:30] VITALS: BP_SYST 102
[2016-03-13] MEDS ORDERED: MISSING DOSE XX ONE ×2 (12:30→18:35)
[2016-03-13] MEDS: CEPACOL LOZENGE PO PRN (15:08)
[2016-03-13 17:26] VITALS: BP_SYST 140; RESP 20; TEMP 97
[2016-03-13 19:06] VITALS: BP_SYST 138; RESP 18; TEMP 97
[2016-03-13] MEDS: Atorvastatin 20 MG TAB PO SCH (21:46)
[2016-03-14] MEDS: VANCOMYCIN SUSP 250 MG/5 ML UDC PO SCH ×5 (00:04→23:52)
[2016-03-14] MEDS: NEB-ALBUTEROL 2.5 MG/3 ML INH SCH ×3 (02:09→10:41)
[2016-03-14 04:47] VITALS: BP_SYST 108; RESP 20; TEMP 98.2
[2016-03-14] MEDS: LEVOTHYROXINE 0.125 MG TAB PO SCH (06:24)
[2016-03-14] MEDS: NEXIUM 40 MG PO SCH (06:24)
[2016-03-14] MEDS: Docosanol 10% Cream 2 Gm TOPICAL SCH ×5 (06:24→22:31)
[2016-03-14] MEDS: *HOME MEDS IN MED CART XX SCH ×2 (08:00→20:00)
[2016-03-14] MEDS: humuLIN N INSULIN SUBQ SCH ×2 (09:29→22:29)
[2016-03-14] MEDS: FERROUS SULF 325 MG TAB PO SCH ×2 (09:31→22:26)
[2016-03-14] MEDS: ASPIRIN EC 81 MG TAB PO SCH (09:31)
[2016-03-14] MEDS: ROFLUMILAST 500 MCG TAB PO SCH (09:31)
[2016-03-14] MEDS: ISOSORBIDE MONO 30 MG TAB PO SCH (09:32)
[2016-03-14] MEDS: GABAPENTIN 600 MG TAB PO SCH ×3 (09:32→22:26)
[2016-03-14] MEDS: Furosemide 20 MG TAB PO SCH ×2 (09:32→22:27)
[2016-03-14] MEDS: SERTRALINE 25 MG TAB PO SCH (09:33)
[2016-03-14] MEDS: MONTELUKAST 10 MG TAB PO SCH (09:33)
[2016-03-14] MEDS: CHOLESTYRAMINE 4 GM PKT PO SCH ×3 (09:34→22:27)
[2016-03-14] MEDS: MICONAZOLE 2% PWD TOPICAL SCH ×2 (09:34→22:35)
[2016-03-14] MEDS: ALUMINUM ACETATE TOPICAL SCH ×2 (09:34→22:27)
[2016-03-14] MEDS: ACETAMINOPHEN 325 MG TAB PO PRN (09:39)
[2016-03-14] MEDS: LIDOCAINE 2% VISC 80 ML, DIPHENHYDRAMINE (FOR COMPOUND) 80 ML, NYSTATIN SUSP FOR CPD 80 ML SWISH.SWAL SCH ×16 (09:40→22:30)
[2016-03-14] MEDS: TRIAMCINOLONE 0.1% TOPICAL SCH ×2 (09:41→21:00)
[2016-03-14 10:00] VITALS: BP_SYST 112; RESP 20; TEMP 98.2
[2016-03-14] MEDS: CHOLECALCIFEROL 1,000 UNITS TAB PO SCH (10:24)
[2016-03-14] MEDS: LORAZEPAM 0.5 MG TAB PO PRN ×2 (10:25→23:54)
[2016-03-14] MEDS ORDERED: NEB-ALBUTEROL 2.5 MG/3 ML INH PRN (15:20)
[2016-03-14 17:13] VITALS: BP_SYST 118; RESP 20; TEMP 97.6
[2016-03-14] MEDS: DUONEB INH SCH ×2 (18:58→22:39)
[2016-03-14] MEDS: Atorvastatin 20 MG TAB PO SCH (22:26)
[2016-03-15] MEDS ORDERED: MISSING DOSE XX ONE (00:05)
[2016-03-15 00:47] VITALS: BP_SYST 136; RESP 20; TEMP 98
[2016-03-15] MEDS: DUONEB INH SCH ×6 (02:23→23:35)
[2016-03-15] MEDS: LEVOTHYROXINE 0.125 MG TAB PO SCH (06:36)
[2016-03-15] MEDS: VANCOMYCIN SUSP 250 MG/5 ML UDC PO SCH ×4 (06:36→23:43)
[2016-03-15] MEDS: Docosanol 10% Cream 2 Gm TOPICAL SCH ×5 (06:37→22:35)
[2016-03-15] MEDS: NEXIUM 40 MG PO SCH (06:37)
[2016-03-15] MEDS: *HOME MEDS IN MED CART XX SCH ×2 (08:00→20:00)
[2016-03-15] MEDS: ISOSORBIDE MONO 30 MG TAB PO SCH (09:25)
[2016-03-15] MEDS: SERTRALINE 25 MG TAB PO SCH (09:25)
[2016-03-15] MEDS: CHOLECALCIFEROL 1,000 UNITS TAB PO SCH (09:26)
[2016-03-15] MEDS: GABAPENTIN 600 MG TAB PO SCH ×3 (09:26→22:32)
[2016-03-15] MEDS: ASPIRIN EC 81 MG TAB PO SCH (09:26)
[2016-03-15] MEDS: MONTELUKAST 10 MG TAB PO SCH (09:26)
[2016-03-15] MEDS: Furosemide 20 MG TAB PO SCH ×2 (09:26→22:32)
[2016-03-15] MEDS: ROFLUMILAST 500 MCG TAB PO SCH (09:26)
[2016-03-15] MEDS: MICONAZOLE 2% PWD TOPICAL SCH ×2 (09:27→21:00)
[2016-03-15] MEDS: LORAZEPAM 0.5 MG TAB PO PRN (09:27)
[2016-03-15] MEDS: FERROUS SULF 325 MG TAB PO SCH ×2 (09:27→22:32)
[2016-03-15] MEDS: ALUMINUM ACETATE TOPICAL SCH ×2 (09:27→22:33)
[2016-03-15] MEDS: CHOLESTYRAMINE 4 GM PKT PO SCH ×2 (09:27→22:32)
[2016-03-15] MEDS: LIDOCAINE 2% VISC 80 ML, DIPHENHYDRAMINE (FOR COMPOUND) 80 ML, NYSTATIN SUSP FOR CPD 80 ML SWISH.SWAL SCH ×16 (09:28→22:31)
[2016-03-15] MEDS: TRIAMCINOLONE 0.1% TOPICAL SCH ×2 (09:29→21:00)
[2016-03-15 09:35] VITALS: BP_SYST 130; RESP 20; TEMP 97.5
[2016-03-15] MEDS: humuLIN N INSULIN SUBQ SCH ×2 (09:46→22:33)
[2016-03-15] MEDS: ACETAMINOPHEN 325 MG TAB PO PRN ×2 (09:48→17:37)
[2016-03-15 16:46] VITALS: BP_SYST 126; RESP 20; TEMP 97.9
[2016-03-15] MEDS: Atorvastatin 20 MG TAB PO SCH (22:32)
[2016-03-16 00:59] VITALS: BP_SYST 126; RESP 20; TEMP 96.5
[2016-03-16] MEDS: DUONEB INH SCH ×6 (02:33→23:58)
[2016-03-16] MEDS: LEVOTHYROXINE 0.125 MG TAB PO SCH (06:29)
[2016-03-16] MEDS: VANCOMYCIN SUSP 250 MG/5 ML UDC PO SCH ×3 (06:29→17:26)
[2016-03-16] MEDS: NEXIUM 40 MG PO SCH (06:30)
[2016-03-16] MEDS: Docosanol 10% Cream 2 Gm TOPICAL SCH ×5 (06:30→21:26)
[2016-03-16] MEDS: *HOME MEDS IN MED CART XX SCH ×2 (08:00→20:00)
[2016-03-16] MEDS: humuLIN N INSULIN SUBQ SCH ×2 (09:04→21:24)
[2016-03-16] MEDS: FERROUS SULF 325 MG TAB PO SCH ×2 (09:06→21:26)
[2016-03-16] MEDS: SERTRALINE 25 MG TAB PO SCH (09:06)
[2016-03-16] MEDS: GABAPENTIN 600 MG TAB PO SCH ×3 (09:06→21:26)
[2016-03-16] MEDS: MONTELUKAST 10 MG TAB PO SCH (09:06)
[2016-03-16] MEDS: ISOSORBIDE MONO 30 MG TAB PO SCH (09:06)
[2016-03-16] MEDS: CHOLECALCIFEROL 1,000 UNITS TAB PO SCH (09:06)
[2016-03-16] MEDS: CHOLESTYRAMINE 4 GM PKT PO SCH ×2 (09:07→21:26)
[2016-03-16] MEDS: ROFLUMILAST 500 MCG TAB PO SCH (09:07)
[2016-03-16] MEDS: Furosemide 20 MG TAB PO SCH ×2 (09:07→21:28)
[2016-03-16] MEDS: CEPACOL LOZENGE PO PRN (09:07)
[2016-03-16] MEDS: ASPIRIN EC 81 MG TAB PO SCH (09:07)
[2016-03-16] MEDS: LORAZEPAM 0.5 MG TAB PO PRN (09:07)
[2016-03-16] MEDS: LIDOCAINE 2% VISC 80 ML, DIPHENHYDRAMINE (FOR COMPOUND) 80 ML, NYSTATIN SUSP FOR CPD 80 ML SWISH.SWAL SCH ×16 (09:11→21:28)
[2016-03-16] MEDS: ALUMINUM ACETATE TOPICAL SCH (09:11)
[2016-03-16] MEDS: TRIAMCINOLONE 0.1% TOPICAL SCH ×2 (09:13→21:27)
[2016-03-16] MEDS: MICONAZOLE 2% PWD TOPICAL SCH (09:14)
[2016-03-16 13:22] VITALS: BP_SYST 128; RESP 20; TEMP 97.1
[2016-03-16] MEDS: ONDANSETRON 4 MG TAB PO PRN (16:07)
[2016-03-16 17:07] VITALS: BP_SYST 139; RESP 20; TEMP 98.6
[2016-03-16] MEDS ORDERED: MISSING DOSE XX ONE (18:05)
[2016-03-16] MEDS: Atorvastatin 20 MG TAB PO SCH (21:26)
[2016-03-17] MEDS: DUONEB INH SCH ×6 (02:53→22:51)
[2016-03-17 03:19] VITALS: BP_SYST 130; RESP 20; TEMP 98.5
[2016-03-17] MEDS: Docosanol 10% Cream 2 Gm TOPICAL SCH ×5 (05:56→22:13)
[2016-03-17] MEDS: VANCOMYCIN SUSP 250 MG/5 ML UDC PO SCH ×5 (05:56→23:04)
[2016-03-17] MEDS: LEVOTHYROXINE 0.125 MG TAB PO SCH (05:56)
[2016-03-17] MEDS: MICONAZOLE 2% PWD TOPICAL SCH ×3 (05:57→21:00)
[2016-03-17] MEDS: NEXIUM 40 MG PO SCH (05:57)
[2016-03-17] MEDS: ALUMINUM ACETATE TOPICAL SCH ×2 (05:58→17:05)
[2016-03-17] MEDS: *HOME MEDS IN MED CART XX SCH ×2 (08:00→20:00)
[2016-03-17] MEDS: CHOLESTYRAMINE 4 GM PKT PO SCH ×2 (08:05→22:12)
[2016-03-17] MEDS: ROFLUMILAST 500 MCG TAB PO SCH (08:08)
[2016-03-17] MEDS: GABAPENTIN 600 MG TAB PO SCH ×3 (08:09→22:17)
[2016-03-17] MEDS: FERROUS SULF 325 MG TAB PO SCH ×2 (08:09→22:17)
[2016-03-17] MEDS: ACETAMINOPHEN 325 MG TAB PO PRN ×2 (08:09→18:31)
[2016-03-17] MEDS: MONTELUKAST 10 MG TAB PO SCH (08:10)
[2016-03-17] MEDS: SERTRALINE 25 MG TAB PO SCH (08:10)
[2016-03-17] MEDS: ASPIRIN EC 81 MG TAB PO SCH (08:10)
[2016-03-17] MEDS: CHOLECALCIFEROL 1,000 UNITS TAB PO SCH (08:10)
[2016-03-17] MEDS: Furosemide 20 MG TAB PO SCH ×2 (08:10→22:17)
[2016-03-17] MEDS: ISOSORBIDE MONO 30 MG TAB PO SCH (08:10)
[2016-03-17] MEDS: humuLIN N INSULIN SUBQ SCH ×2 (08:22→22:14)
[2016-03-17] MEDS: LIDOCAINE 2% VISC 80 ML, DIPHENHYDRAMINE (FOR COMPOUND) 80 ML, NYSTATIN SUSP FOR CPD 80 ML SWISH.SWAL SCH ×16 (08:24→22:12)
[2016-03-17] MEDS: TRIAMCINOLONE 0.1% TOPICAL SCH ×2 (09:00→21:00)
[2016-03-17] MEDS: LORAZEPAM 0.5 MG TAB PO PRN ×2 (09:33→18:44)
[2016-03-17 10:14] VITALS: BP_SYST 126; RESP 20; TEMP 97.8
[2016-03-17 16:57] VITALS: BP_SYST 158; RESP 20; TEMP 99.4
[2016-03-17 19:12] VITALS: BP_SYST 124
[2016-03-17 19:46] VITALS: BP_SYST 118
[2016-03-17] MEDS: Atorvastatin 20 MG TAB PO SCH (22:17)
[2016-03-18 01:56] VITALS: BP_SYST 110; RESP 20; TEMP 97.1
[2016-03-18] MEDS: DUONEB INH SCH ×3 (03:04→10:41)
[2016-03-18] MEDS: ALUMINUM ACETATE TOPICAL SCH (03:30)
[2016-03-18] MEDS: VANCOMYCIN SUSP 250 MG/5 ML UDC PO SCH ×2 (06:32→12:45)
[2016-03-18] MEDS: LEVOTHYROXINE 0.125 MG TAB PO SCH (06:32)
[2016-03-18] MEDS: NEXIUM 40 MG PO SCH (06:32)
[2016-03-18] MEDS: Docosanol 10% Cream 2 Gm TOPICAL SCH ×2 (06:33→09:30)
[2016-03-18] MEDS: *HOME MEDS IN MED CART XX SCH (08:00)
[2016-03-18] MEDS: TRIAMCINOLONE 0.1% TOPICAL SCH (09:00)
[2016-03-18] MEDS: Furosemide 20 MG TAB PO SCH (09:00)
[2016-03-18 09:14] VITALS: BP_SYST 138; RESP 20; TEMP 98.2
[2016-03-18] MEDS: humuLIN N INSULIN SUBQ SCH (09:22)
[2016-03-18] MEDS: ASPIRIN EC 81 MG TAB PO SCH (09:26)
[2016-03-18] MEDS: FERROUS SULF 325 MG TAB PO SCH (09:26)
[2016-03-18] MEDS: GABAPENTIN 600 MG TAB PO SCH (09:26)
[2016-03-18] MEDS: MONTELUKAST 10 MG TAB PO SCH (09:27)
[2016-03-18] MEDS: ROFLUMILAST 500 MCG TAB PO SCH (09:27)
[2016-03-18] MEDS: ISOSORBIDE MONO 30 MG TAB PO SCH (09:27)
[2016-03-18] MEDS: CHOLECALCIFEROL 1,000 UNITS TAB PO SCH (09:27)
[2016-03-18] MEDS: SERTRALINE 25 MG TAB PO SCH (09:27)
[2016-03-18] MEDS: LORAZEPAM 0.5 MG TAB PO PRN (09:27)
[2016-03-18] MEDS: CHOLESTYRAMINE 4 GM PKT PO SCH (09:28)
[2016-03-18] MEDS: LIDOCAINE 2% VISC 80 ML, DIPHENHYDRAMINE (FOR COMPOUND) 80 ML, NYSTATIN SUSP FOR CPD 80 ML SWISH.SWAL SCH ×8 (09:31→12:45)
[2016-03-18] MEDS: MICONAZOLE 2% PWD TOPICAL SCH (09:32)
[2016-03-18] MEDS: ACETAMINOPHEN 325 MG TAB PO PRN (09:39)
[2016-03-18 10:59] VITALS: BP_SYST 138; RESP 20; TEMP 98.2
[2016-03-19] MEDS ORDERED: VANCOMYCIN SUSP 250 MG/5 ML UDC PO SCH (20:00)
[2016-03-27] MEDS ORDERED: VANCOMYCIN SUSP 250 MG/5 ML UDC PO SCH (08:00)
[2016-04-04] MEDS ORDERED: VANCOMYCIN SUSP 250 MG/5 ML UDC PO SCH (09:00)
== END 2016-03-18 13:19 | disposition home or self-care (01) | DRG 555 ==
LOC: NF 17:02 → ENPENDDIS 17:02
PROVIDERS: ADMIT Family Medicine; ATTEND Family Medicine
DX: R26.2 Difficulty in walking, not elsewhere classified (principal); J15.212 Pneumonia due to Methicillin resistant Staphylococcus aureus; I50.33 Acute on chronic diastolic (congestive) heart failure; A04.7 Enterocolitis due to Clostridium difficile; J44.1 Chronic obstructive pulmonary disease with (acute) exacerbation; Y95 Nosocomial condition; E11.9 Type 2 diabetes mellitus without complications
CPT/HCPCS: 36415; 80048; 82947; 83735; 85025; 86580; 94640; 94799; 99232; 99307; 99308; 99309; 99316